=== PATIENT | male | born 1965 | race Caucasian/White ===

== ENCOUNTER → 2018-06-09 21:07 | Outpatient (CLI) | payer BC, OTHER, SELFPAY ==
[2018-06-09 11:32] VITALS: BMI 54.9
[2018-06-09 21:31] LABS: Absolute Lymphocyte Count 1.87 X10^3/ul (0.83-4.51); Absolute Neutrophil Count 5.8 X10^3/uL (2.0-7.7); Basophil# 0.07 X10^3/uL; Basophil% 0.7 % (0-1); Eosinophil# 0.84 X10^3/uL; Hematocrit 34.7 % (40-54); Hemoglobin 9.4 g/dl (13.0-16.5); Lymphocyte # 1.87 X10^3/ul (4.0); Mean Corp Hgb Conc 27.1 g/gl (32-36); Mean Corpuscular Hgb 17.3 pg (27.0-32.0); Mean Platelet Vol. 9.8 fl (6.2-12.0); Monocyte# 0.79 X10^3/uL; Monocyte% 8.5 % (0-10); Neutrophil # 5.75 X10^3/uL (2.7-7.7); Neutrophil % 61.6 % (47-70); Platelet Count 341 K/mm3 (150-450); RBC Distribution Width SD 43.8 fl (35.1-43.9); Red Blood Count 5.42 M/mm3 (4.6-6.2); White Blood Count 9.3 K/mm3 (4.4-11.0)
[2018-06-09 21:34] LABS: Differential Indicated SCAN CRITERIA MET; POSITIVE COUNT NO; POSITIVE DIFFERENTIAL NO; POSITIVE MORPHOLOGY YES
[2018-06-09 21:42] LABS: ALB/GLOB Ratio 0.9 RATIO (0.9-2.4); AST(SGOT) 21 U/L (15-37); Alanine Aminotransfer ALT/SGPT 31 U/L (16-61); Albumin, Serum 2.7 g/dL (3.2-5.0); Alkaline Phosphatase 107 U/L (45-117); Anion Gap 5 (5-15); BUN 25 mg/dL (7-18); BUN/Creat Ratio 35.2 RATIO (10-20); Calcium,Total 7.7 mg/dL (8.5-10.1); Chloride 107 mmol/L (98-107); Cholesterol 103 mg/dL (200); Creatinine, Serum 0.71 mg/dL (0.70-1.30); EST Glomerular Filtration Rate 124 mL/min (>60); Est Glom Filt Rate - Afr Amer 149 mL/min (>60); Globulin 2.9 g/dL (2.2-4.2); Glucose 164 mg/dL (74-106); High Density Lipoprotein 32 mg/dL; Potassium 4.3 mmol/L (3.5-5.1); Protein, Total 5.6 g/dL (6.4-8.2); Sodium Level 140 mmol/L (136-145); Thyroid Stim Hormone (TSH) 2.15 uIU/mL (0.358-3.74); Triglycerides 373 mg/dL; Very Low Density Lipoprotein 75 mg/dL (5-40)
[2018-06-09 22:23] LABS: Differential Comment SCANNED
[2018-06-09 22:24] LABS: Hypochromasia 1+; Polychromasia RARE
== END ==
PROVIDERS: Family Provider Nurse Practitioner; PCP Nurse Practitioner; Referring Provider Nurse Practitioner; Visit Provider Nurse Practitioner
DX: D64.9 Anemia, unspecified (principal); E78.5 Hyperlipidemia, unspecified; E03.9 Hypothyroidism, unspecified
CPT/HCPCS: 80053; 80061; 84443; 85025

== ENCOUNTER → 2018-06-12 | Outpatient (CLI) | payer BC, OTHER, SELFPAY ==
[2018-06-09 11:32] VITALS: BMI 54.9
[2018-06-12 23:42] LABS: Ferritin 3 ng/mL (26-388); Iron Binding Capacity,Total 440 ug/dL (250-450)
[2018-06-13 00:13] LABS: Vitamin B12 479 pg/mL (211-911)
== END | disposition home or self-care (01) ==
PROVIDERS: Family Provider Nurse Practitioner; PCP Nurse Practitioner; Referring Provider Nurse Practitioner; Visit Provider Nurse Practitioner
DX: D64.9 Anemia, unspecified (principal)
CPT/HCPCS: 82607; 82728; 83550

== ENCOUNTER → 2018-07-24 22:06 | Outpatient (CLI) | payer BC, OTHER, SELFPAY ==
[2018-06-09 11:32] VITALS: BMI 54.9
[2018-07-27 16:07] LABS: Endomysial Antibody IgA Negative (Negative)
[2018-07-28 12:39] LABS: Deamidated Gliadin IgA 24 units (0-19); Deamidated Gliadin IgG 19 units (0-19); Immunoglobulin A 104 mg/dL (90-386); t-Transglutaminase IgA 9 U/mL (0-3)
== END ==
PROVIDERS: Family Provider Nurse Practitioner; PCP Nurse Practitioner; Referring Provider Nurse Practitioner; Visit Provider Nurse Practitioner
DX: R19.4 Change in bowel habit (principal)
CPT/HCPCS: 82784; 83516; 86255

== ENCOUNTER → 2018-08-21 23:23 | Outpatient (CLI) | payer BC, OTHER, SELFPAY ==
[2018-06-09 11:32] VITALS: BMI 54.9
== END ==
LOC: OLS.AHF 23:24 → LABSPEC 08-22 08:06
PROVIDERS: Family Provider Nurse Practitioner; PCP Nurse Practitioner; Referring Provider Nurse Practitioner; Visit Provider Nurse Practitioner
DX: D50.9 Iron deficiency anemia, unspecified (principal)

== ENCOUNTER → 2018-10-23 21:56 | Outpatient (CLI) | payer BC, OTHER, SELFPAY ==
[2018-10-23 18:04] VITALS: BMI 52.3
[2018-10-23 22:11] LABS: Absolute Lymphocyte Count 1.95 X10^3/uL (0.83-4.51); Absolute Neutrophil Count 5.4 X10^3/uL (2.0-7.7); Basophil# 0.11 X10^3/uL; Basophil% 1.2 % (0-1); Eosinophil# 1.02 X10^3/uL; Eosinophils% 10.8 % (0-5); Hematocrit 43.8 % (40-54); Hemoglobin 13.6 g/dL (13.0-16.5); Lymphocyte # 1.95 X10^3/ul (4.0); Lymphocyte % 20.6 % (19-41); Mean Corp Hgb Conc 31.1 g/dL (32-36); Mean Corpuscular Hgb 23.9 pg (27.0-32.0); Mean Platelet Vol. 9.8 fl (6.2-12.0); Monocyte# 0.97 X10^3/uL; Monocyte% 10.3 % (0-10); NRBC Flagged by Analyzer 0 % (0-5); Neutrophil # 5.39 X10^3/uL (2.7-7.7); Neutrophil % 56.9 % (47-70); POSITIVE MORPHOLOGY YES; Platelet Count 249 K/mm3 (150-450); RBC Distribution Width CV 23.6 % (11.6-14.6); RBC Distribution Width SD 63.2 fl (35.1-43.9); Red Blood Count 5.69 M/mm3 (4.6-6.2); White Blood Count 9.5 K/mm3 (4.4-11.0)
[2018-10-23 22:13] LABS: Differential Indicated SCAN CRITERIA MET
[2018-10-23 22:28] LABS: AST(SGOT) 13 U/L (15-37); Alanine Aminotransfer ALT/SGPT 29 U/L (16-61); Albumin, Serum 3.1 g/dL (3.2-5.0); Alkaline Phosphatase 69 U/L (45-117); Anion Gap 6 (5-15); BUN 22 mg/dL (7-18); BUN/Creat Ratio 28.5 RATIO (10-20); Calcium,Total 8.8 mg/dL (8.5-10.1); Chloride 107 mmol/L (98-107); Creatinine, Serum 0.77 mg/dL (0.70-1.30); EST Glomerular Filtration Rate 112 mL/min (>60); Est Glom Filt Rate - Afr Amer 136 mL/min (>60); Globulin 3.2 g/dL (2.2-4.2); Glucose 148 mg/dL (74-106); Potassium 3.5 mmol/L (3.5-5.1); Prealbumin 27.4 mg/dL (20.0-40.0); Protein, Total 6.3 g/dL (6.4-8.2); Sodium Level 143 mmol/L (136-145)
[2018-10-23 22:41] LABS: Platelet Estimate ADEQUATE (ADEQ)
[2018-10-23 22:42] LABS: Anisocytosis 1+; Microcytosis 1+; Red Cell Morphology N CHROM NORMAL (NORM C&C)
== END ==
PROVIDERS: Family Provider Nurse Practitioner; PCP Nurse Practitioner; Referring Provider Nurse Practitioner; Visit Provider Nurse Practitioner
DX: D64.9 Anemia, unspecified (principal); E46 Unspecified protein-calorie malnutrition
CPT/HCPCS: 80053; 84134; 85025

== ENCOUNTER → 2018-11-22 21:33 | Outpatient (CLI) | payer BC, OTHER, SELFPAY ==
[2018-11-22 21:10] VITALS: BMI 52.3
[2018-11-22 21:39] LABS: Absolute Lymphocyte Count 2.22 X10^3/uL (0.83-4.51); Absolute Neutrophil Count 5.1 X10^3/uL (2.0-7.7); Basophil# 0.11 X10^3/uL; Basophil% 1.2 % (0-1); Eosinophil# 1.07 X10^3/uL; Eosinophils% 11.2 % (0-5); Hematocrit 45.1 % (40-54); Hemoglobin 14.2 g/dL (13.0-16.5); Lymphocyte # 2.22 X10^3/ul (4.0); Lymphocyte % 23.3 % (19-41); Mean Corp Hgb Conc 31.5 g/dL (32-36); Mean Corpuscular Volume 79.3 fL (80-94); Mean Platelet Vol. 9.7 fl (6.2-12.0); Monocyte# 0.99 X10^3/uL; Monocyte% 10.4 % (0-10); NRBC Flagged by Analyzer 0 % (0-5); Neutrophil # 5.13 X10^3/uL (2.7-7.7); Neutrophil % 53.7 % (47-70); POSITIVE MORPHOLOGY YES; Platelet Count 286 K/mm3 (150-450); Red Blood Count 5.69 M/mm3 (4.6-6.2); White Blood Count 9.5 K/mm3 (4.4-11.0)
[2018-11-22 21:46] LABS: Differential Indicated SCAN CRITERIA MET
[2018-11-22 21:53] LABS: ALB/GLOB Ratio 0.9 RATIO (0.9-2.4); AST(SGOT) 17 U/L (15-37); Alanine Aminotransfer ALT/SGPT 34 U/L (16-61); Alkaline Phosphatase 80 U/L (45-117); Anion Gap 7 (5-15); BUN 24 mg/dL (7-18); BUN/Creat Ratio 28.2 RATIO (10-20); Calcium,Total 8.7 mg/dL (8.5-10.1); Chloride 104 mmol/L (98-107); Creatinine, Serum 0.85 mg/dL (0.70-1.30); EST Glomerular Filtration Rate 100 mL/min (>60); Est Glom Filt Rate - Afr Amer 121 mL/min (>60); Ferritin 18 ng/mL (26-388); Globulin 3.3 g/dL (2.2-4.2); Glucose 147 mg/dL (74-106); Potassium 4.2 mmol/L (3.5-5.1); Protein, Total 6.3 g/dL (6.4-8.2); Sodium Level 139 mmol/L (136-145)
[2018-11-22 22:02] LABS: Anisocytosis RARE; Microcytosis RARE; Platelet Estimate ADEQUATE (ADEQ); Red Cell Morphology N CHROM NORMAL (NORM C&C)
== END ==
PROVIDERS: Family Provider Nurse Practitioner; PCP Nurse Practitioner; Referring Provider Nurse Practitioner; Visit Provider Nurse Practitioner
DX: D64.9 Anemia, unspecified (principal); E46 Unspecified protein-calorie malnutrition
CPT/HCPCS: 80053; 82728; 85025

== ENCOUNTER → 2019-03-04 21:00 | Outpatient (CLI) | payer BC, OTHER, SELFPAY ==
[2019-03-04 18:31] VITALS: BMI 50.8
[2019-03-04 21:13] LABS: Absolute Lymphocyte Count 1.88 X10^3/uL (0.83-4.51); Absolute Neutrophil Count 4.7 X10^3/uL (2.0-7.7); Basophil# 0.08 X10^3/uL; Eosinophil# 0.79 X10^3/uL; Eosinophils% 9.4 % (0-5); Hematocrit 44.8 % (40-54); Hemoglobin 14.3 g/dL (13.0-16.5); Lymphocyte # 1.88 X10^3/ul (4.0); Lymphocyte % 22.4 % (19-41); Mean Corp Hgb Conc 31.9 g/dL (32-36); Mean Corpuscular Hgb 25.5 pg (27.0-32.0); Mean Platelet Vol. 9.4 fl (6.2-12.0); Monocyte% 10.7 % (0-10); NRBC Flagged by Analyzer 0 % (0-5); Neutrophil # 4.71 X10^3/uL (2.7-7.7); Neutrophil % 56.3 % (47-70); Platelet Count 278 K/mm3 (150-450); RBC Distribution Width CV 14.6 % (11.6-14.6); White Blood Count 8.4 K/mm3 (4.4-11.0)
[2019-03-04 21:29] LABS: ALB/GLOB Ratio 0.9 RATIO (0.9-2.4); AST(SGOT) 18 U/L (15-37); Alanine Aminotransfer ALT/SGPT 40 U/L (16-61); Albumin, Serum 3.2 g/dL (3.2-5.0); Alkaline Phosphatase 76 U/L (45-117); Anion Gap 6 (5-15); BUN 17 mg/dL (7-18); BUN/Creat Ratio 21.9 RATIO (10-20); Calcium,Total 8.8 mg/dL (8.5-10.1); Chloride 106 mmol/L (98-107); Creatinine, Serum 0.78 mg/dL (0.70-1.30); EST Glomerular Filtration Rate 111 mL/min (>60); Est Glom Filt Rate - Afr Amer 134 mL/min (>60); Ferritin 19 ng/mL (26-388); Globulin 3.4 g/dL (2.2-4.2); Glucose 127 mg/dL (74-106); Iron Binding Capacity,Total 438 ug/dL (250-450); Potassium 3.6 mmol/L (3.5-5.1); Protein, Total 6.6 g/dL (6.4-8.2); Sodium Level 139 mmol/L (136-145)
== END ==
PROVIDERS: Family Provider Nurse Practitioner; PCP Nurse Practitioner; Referring Provider Nurse Practitioner; Visit Provider Nurse Practitioner
DX: R73.9 Hyperglycemia, unspecified (principal); D64.9 Anemia, unspecified
CPT/HCPCS: 80053; 82728; 83550; 85025

== ENCOUNTER → 2019-08-02 09:25 | Outpatient (CLI) | payer BC, SELFPAY ==
[2019-06-04 17:58] VITALS: BMI 50.8
== END ==
PROVIDERS: PCP Nurse Practitioner; Referring Provider Nurse Practitioner; Visit Provider Nurse Practitioner
DX: Z20.828 Contact with and (suspected) exposure to other viral communicable diseases (principal)
CPT/HCPCS: 87635; G2023; U0003

== ENCOUNTER → 2019-08-09 06:50 | Outpatient (CLI) | payer BC, SELFPAY ==
[2019-06-04 17:58] VITALS: BMI 50.8
--- NOTE | 2019-08-09 07:10 | RAD_ITS ---
STUDY: X-RAY CHEST REASON FOR EXAM: Male, 53 years old. CHRONIC COUGH TECHNIQUE: PA and lateral views of the chest. COMPARISON: None. FINDINGS: The lungs are clear and expanded. Scattered calcified granulomas. There is no demonstrated pleural abnormality. Normal size heart. Normal mediastinum and ny. Normal visualized pulmonary arteries. Normal visualized aortic arch and descending thoracic aorta. There are degenerative changes of the visualized thoracic spine. Normal visualized ribs, clavicles, and shoulders. There is no demonstrated abnormality of the visualized soft tissue structures of the upper abdomen. RAD/Chest PA and Lateral IMPRESSION: No acute abnormality is seen. Electronically Signed: Curtis Garcia, at 10:27 EDT , Service support ,
== END ==
PROVIDERS: PCP Nurse Practitioner; Referring Provider Nurse Practitioner; Visit Provider Nurse Practitioner
DX: R05 Cough (principal)
CPT/HCPCS: 71046

== ENCOUNTER → 2019-11-22 | Outpatient (CLI) | payer BC, SELFPAY ==
[2019-11-22 15:04] VITALS: BMI 55.1
[2019-11-22 20:59] LABS: ALB/GLOB Ratio 0.9 RATIO (0.9-2.4); AST(SGOT) 19 U/L (15-37); Alanine Aminotransfer ALT/SGPT 36 U/L (16-61); Albumin, Serum 2.9 g/dL (3.2-5.0); Alkaline Phosphatase 98 U/L (45-117); Anion Gap 7 (5-15); BUN 19 mg/dL (7-18); BUN/Creat Ratio 23.5 RATIO (10-20); Calcium,Total 8.2 mg/dL (8.5-10.1); Chloride 107 mmol/L (98-107); Creatinine, Serum 0.81 mg/dL (0.70-1.30); EST Glomerular Filtration Rate 106 mL/min (>60); Est Glom Filt Rate - Afr Amer 128 mL/min (>60); Globulin 3.2 g/dL (2.2-4.2); Glucose 153 mg/dL (74-106); Protein, Total 6.1 g/dL (6.4-8.2); Sodium Level 141 mmol/L (136-145)
== END | disposition home or self-care (01) ==
PROVIDERS: PCP Nurse Practitioner; Referring Provider Nurse Practitioner; Visit Provider Nurse Practitioner
DX: I10 Essential (primary) hypertension (principal)
CPT/HCPCS: 80053

== ENCOUNTER → 2020-05-04 | Outpatient (CLI) | payer BC, SELFPAY ==
[2020-05-04 17:59] VITALS: BMI 56.0
[2020-05-04 22:52] LABS: Absolute Lymphocyte Count 2.26 X10^3/uL (0.83-4.51); Absolute Neutrophil Count 5.2 X10^3/uL (2.0-7.7); Basophil# 0.08 X10^3/uL; Basophil% 0.8 % (0-1); Eosinophil# 1.31 X10^3/uL; Eosinophils% 13.3 % (0-5); Hematocrit 41.2 % (40-54); Hemoglobin 12.3 g/dL (13.0-16.5); Lymphocyte # 2.26 X10^3/ul (4.0); Lymphocyte % 22.9 % (19-41); Mean Corp Hgb Conc 29.9 g/dL (32-36); Mean Corpuscular Hgb 21.7 pg (27.0-32.0); Mean Corpuscular Volume 72.8 fL (80-94); Mean Platelet Vol. 9.9 fl (6.2-12.0); Monocyte# 0.93 X10^3/uL; Monocyte% 9.4 % (0-10); NRBC Flagged by Analyzer 0 % (0-5); Neutrophil # 5.23 X10^3/uL (2.7-7.7); Platelet Count 266 K/mm3 (150-450); RBC Distribution Width CV 16.9 % (11.6-14.6); RBC Distribution Width SD 43.8 fl (35.1-43.9); Red Blood Count 5.66 M/mm3 (4.6-6.2); White Blood Count 9.9 K/mm3 (4.4-11.0)
[2020-05-04 23:12] LABS: Hemoglobin A1c 7.3 % (3.8-5.6)
[2020-05-04 23:14] LABS: ALB/GLOB Ratio 0.8 RATIO (0.9-2.4); AST(SGOT) 27 U/L (15-37); Alanine Aminotransfer ALT/SGPT 43 U/L (16-61); Albumin, Serum 2.7 g/dL (3.2-5.0); Alkaline Phosphatase 91 U/L (45-117); Anion Gap 8 (5-15); BUN 27 mg/dL (7-18); BUN/Creat Ratio 41.2 RATIO (10-20); Calcium,Total 8.9 mg/dL (8.5-10.1); Chloride 104 mmol/L (98-107); Cholesterol 162 mg/dL (200); Creatinine, Serum 0.66 mg/dL (0.70-1.30); EST Glomerular Filtration Rate 134 mL/min (>60); Est Glom Filt Rate - Afr Amer 163 mL/min (>60); Globulin 3.4 g/dL (2.2-4.2); Glucose 132 mg/dL (74-106); High Density Lipoprotein 40 mg/dL; Magnesium 1.8 mg/dL (1.6-2.6); Potassium 3.9 mmol/L (3.5-5.1); Prealbumin 24.9 mg/dL (20.0-40.0); Protein, Total 6.1 g/dL (6.4-8.2); Sodium Level 140 mmol/L (136-145); Triglycerides 410 mg/dL
== END | disposition home or self-care (01) ==
PROVIDERS: PCP Nurse Practitioner; Referring Provider Nurse Practitioner; Visit Provider Nurse Practitioner
DX: I10 Essential (primary) hypertension (principal); E11.65 Type 2 diabetes mellitus with hyperglycemia; E78.1 Pure hyperglyceridemia; E46 Unspecified protein-calorie malnutrition; D64.9 Anemia, unspecified
CPT/HCPCS: 80053; 80061; 83036; 83735; 84134; 85025

== ENCOUNTER → 2020-10-08 | Outpatient (CLI) | payer BC, SELFPAY ==
[2020-10-08 18:41] VITALS: BMI 53.8
[2020-10-08 22:03] LABS: Absolute Lymphocyte Count 2.35 X10^3/uL (0.83-4.51); Absolute Neutrophil Count 5.3 X10^3/uL (2.0-7.7); Basophil# 0.11 X10^3/uL; Basophil% 1.1 % (0-1); Eosinophil# 0.93 X10^3/uL; Eosinophils% 9.7 % (0-5); Hematocrit 35.1 % (40-54); Hemoglobin 10.2 g/dL (13.0-16.5); Lymphocyte # 2.35 X10^3/ul (0.83-4.51); Lymphocyte % 24.4 % (19-41); Mean Corp Hgb Conc 29.1 g/dL (32-36); Mean Corpuscular Hgb 19.6 pg (27.0-32.0); Mean Corpuscular Volume 67.4 fL (80-94); Mean Platelet Vol. 9.5 fl (6.2-12.0); Monocyte# 0.88 X10^3/uL; Monocyte% 9.1 % (0-10); NRBC Flagged by Analyzer 0 % (0-5); Neutrophil # 5.32 X10^3/uL (2.7-7.7); Neutrophil % 55.3 % (47-70); Platelet Count 292 K/mm3 (150-450); RBC Distribution Width CV 17.3 % (11.6-14.6); RBC Distribution Width SD 40.5 fl (35.1-43.9); Red Blood Count 5.21 M/mm3 (4.6-6.2); White Blood Count 9.6 K/mm3 (4.4-11.0)
[2020-10-08 22:30] LABS: AST(SGOT) 20 U/L (15-37); Alanine Aminotransfer ALT/SGPT 37 U/L (16-61); Albumin, Serum 3.2 g/dL (3.2-5.0); Alkaline Phosphatase 69 U/L (45-117); Anion Gap 9 (5-15); BUN 20 mg/dL (7-18); BUN/Creat Ratio 33.7 RATIO (10-20); Calcium,Total 8.5 mg/dL (8.5-10.1); Chloride 103 mmol/L (98-107); Cholesterol 158 mg/dL (200); Creatinine, Serum 0.59 mg/dL (0.70-1.30); EST Glomerular Filtration Rate 151 mL/min (>60); Est Glom Filt Rate - Afr Amer 182 mL/min (>60); Globulin 3.3 g/dL (2.2-4.2); Glucose 147 mg/dL (74-106); High Density Lipoprotein 48 mg/dL; Potassium 3.4 mmol/L (3.5-5.1); Protein, Total 6.5 g/dL (6.4-8.2); Sodium Level 139 mmol/L (136-145); Thyroid Stim Hormone (TSH) 1.93 uIU/mL (0.358-3.74); Triglycerides 153 mg/dL; Very Low Density Lipoprotein 31 mg/dL (5-40)
[2020-10-08 22:48] LABS: Hemoglobin A1c 8.1 % (3.8-5.6)
== END | disposition home or self-care (01) ==
PROVIDERS: PCP Nurse Practitioner; Visit Provider Nurse Practitioner
DX: E03.9 Hypothyroidism, unspecified (principal); E78.1 Pure hyperglyceridemia; E11.65 Type 2 diabetes mellitus with hyperglycemia; I10 Essential (primary) hypertension; D50.8 Other iron deficiency anemias
CPT/HCPCS: 80053; 80061; 83036; 84443; 85025

== ENCOUNTER 2021-04-01 22:01 | Outpatient (CLI) | payer BC, SELFPAY ==
[2021-04-01 22:19] LABS: Absolute Lymphocyte Count 2.17 X10^3/uL (0.83-4.51); Absolute Neutrophil Count 5.2 X10^3/uL (2.0-7.7); Basophil% 1.2 % (0-1); Eosinophil# 0.38 X10^3/uL; Eosinophils% 4.4 % (0-5); Hematocrit 35.3 % (40-54); Hemoglobin 9.5 g/dL (13.0-16.5); Lymphocyte # 2.17 X10^3/ul (0.83-4.51); Mean Corp Hgb Conc 26.9 g/dL (32-36); Mean Corpuscular Hgb 16.4 pg (27.0-32.0); Mean Corpuscular Volume 60.8 fL (80-94); Mean Platelet Vol. 9.4 fl (6.2-12.0); Monocyte# 0.85 X10^3/uL; Monocyte% 9.8 % (0-10); NRBC Flagged by Analyzer 0 % (0-5); Neutrophil # 5.15 X10^3/uL (2.7-7.7); Neutrophil % 59.3 % (47-70); POSITIVE MORPHOLOGY YES; Platelet Count 255 K/mm3 (150-450); Red Blood Count 5.81 M/mm3 (4.6-6.2); White Blood Count 8.7 K/mm3 (4.4-11.0)
[2021-04-01 22:24] LABS: Differential Indicated SCAN CRITERIA MET
[2021-04-01 22:36] LABS: ALB/GLOB Ratio 0.9 RATIO (0.9-2.4); AST(SGOT) 28 U/L (15-37); Alanine Aminotransfer ALT/SGPT 49 U/L (16-61); Albumin, Serum 2.9 g/dL (3.2-5.0); Alkaline Phosphatase 88 U/L (45-117); Anion Gap 5 (5-15); BUN 21 mg/dL (7-18); BUN/Creat Ratio 40.6 RATIO (10-20); Calcium,Total 7.9 mg/dL (8.5-10.1); Chloride 104 mmol/L (98-107); Cholesterol 117 mg/dL (200); Creatinine, Serum 0.52 mg/dL (0.70-1.30); EST Glomerular Filtration Rate 176 mL/min (>60); Est Glom Filt Rate - Afr Amer 213 mL/min (>60); Globulin 3.1 g/dL (2.2-4.2); Glucose 139 mg/dL (74-106); High Density Lipoprotein 41 mg/dL; Potassium 3.6 mmol/L (3.5-5.1); Sodium Level 136 mmol/L (136-145); Thyroid Stim Hormone (TSH) 2.17 uIU/mL (0.358-3.74); Triglycerides 203 mg/dL; Very Low Density Lipoprotein 41 mg/dL (5-40)
[2021-04-01 22:40] LABS: Anisocytosis 2+; Hypochromasia 1+; Microcytosis 2+; Platelet Estimate ADEQUATE (ADEQ); Red Cell Morphology N CHROM NORMAL (NORM C&C)
[2021-04-01 22:44] LABS: Hemoglobin A1c 8.4 % (3.8-5.6)
[2021-04-02 13:14] LABS: Vitamin B12 492 pg/mL (211-911)
[2021-04-05 21:40] LABS: Vitamin D 1,25-Dihydroxy 64.9 pg/mL (19.9-79.3)
== END 2021-04-01 23:59 | disposition short-term general hospital (02) ==
PROVIDERS: PCP Nurse Practitioner; Visit Provider Nurse Practitioner
DX: D50.8 Other iron deficiency anemias (principal); E11.65 Type 2 diabetes mellitus with hyperglycemia; I10 Essential (primary) hypertension; E78.1 Pure hyperglyceridemia; E03.9 Hypothyroidism, unspecified
CPT/HCPCS: 80053; 80061; 82607; 82652; 83036; 84443; 85025

== ENCOUNTER 2021-11-02 21:51 | Outpatient (CLI) | payer BC, SELFPAY ==
[2021-11-02 22:34] LABS: Absolute Lymphocyte Count 2.97 X10^3/uL (0.83-4.51); Absolute Neutrophil Count 5.6 X10^3/uL (2.0-7.7); Eosinophil# 0.62 X10^3/uL; Eosinophils% 6.1 % (0-5); Hematocrit 34.7 % (40-54); Hemoglobin 9.2 g/dL (13.0-16.5); Lymphocyte # 2.97 X10^3/ul (0.83-4.51); Lymphocyte % 29.1 % (19-41); Mean Corp Hgb Conc 26.5 g/dL (32-36); Mean Corpuscular Hgb 16.7 pg (27.0-32.0); Mean Corpuscular Volume 63.1 fL (80-94); Mean Platelet Vol. 9.5 fl (6.2-12.0); Monocyte# 0.88 X10^3/uL; Monocyte% 8.6 % (0-10); NRBC Flagged by Analyzer 0 % (0-5); Neutrophil # 5.59 X10^3/uL (2.7-7.7); Neutrophil % 54.8 % (47-70); POSITIVE MORPHOLOGY YES; Platelet Count 341 K/mm3 (150-450); RBC Distribution Width CV 20.3 % (11.6-14.6); White Blood Count 10.2 K/mm3 (4.4-11.0)
[2021-11-02 22:43] LABS: Differential Indicated SCAN CRITERIA MET
[2021-11-02 23:06] LABS: Anisocytosis 2+; Hypochromasia 2+; Microcytosis 2+; Pathologist Review May foll; Platelet Estimate ADEQUATE (ADEQ); Red Cell Morphology N CHROM NORMAL (NORM C&C)
[2021-11-02 23:12] LABS: ALB/GLOB Ratio 1.1 RATIO (0.9-2.4); AST(SGOT) 16 U/L (15-37); Alanine Aminotransfer ALT/SGPT 30 U/L (16-61); Albumin, Serum 3.2 g/dL (3.2-5.0); Alkaline Phosphatase 66 U/L (45-117); Anion Gap 10 (5-15); BUN 15 mg/dL (7-18); Calcium,Total 8.5 mg/dL (8.5-10.1); Chloride 103 mmol/L (98-107); Cholesterol 137 mg/dL (200); Creatinine, Serum 0.52 mg/dL (0.70-1.30); EST Glomerular Filtration Rate 175 mL/min (>60); Est Glom Filt Rate - Afr Amer 212 mL/min (>60); Glucose 98 mg/dL (74-106); High Density Lipoprotein 50 mg/dL; Potassium 3.2 mmol/L (3.5-5.1); Protein, Total 6.2 g/dL (6.4-8.2); Sodium Level 140 mmol/L (136-145); Thyroid Stim Hormone (TSH) 2.13 uIU/mL (0.358-3.74); Triglycerides 111 mg/dL; Very Low Density Lipoprotein 22 mg/dL (5-40)
== END 2021-11-02 23:59 | disposition home or self-care (01) ==
PROVIDERS: PCP Nurse Practitioner; Visit Provider Nurse Practitioner
DX: Z00.00 Encounter for general adult medical examination without abnormal findings (principal)
CPT/HCPCS: 80053; 80061; 83036; 84443; 85025

== ENCOUNTER → 2022-05-11 | Outpatient (CLI) | payer BC, SELFPAY ==
[2022-05-11 21:26] LABS: Absolute Lymphocyte Count 1.73 X10^3/uL (0.83-4.51); Basophil# 0.07 X10^3/uL; Eosinophils% 10.9 % (0-5); Hematocrit 32.1 % (40-54); Hemoglobin 8.6 g/dL (13.0-16.5); Lymphocyte # 1.73 X10^3/ul (0.83-4.51); Lymphocyte % 23.6 % (19-41); Mean Corp Hgb Conc 26.8 g/dL (32-36); Mean Corpuscular Hgb 16.3 pg (27.0-32.0); Mean Corpuscular Volume 60.9 fL (80-94); Mean Platelet Vol. 9.1 fl (6.2-12.0); Monocyte% 9.5 % (0-10); NRBC Flagged by Analyzer 0 % (0-5); Neutrophil # 4.02 X10^3/uL (2.7-7.7); Neutrophil % 54.9 % (47-70); POSITIVE MORPHOLOGY YES; Platelet Count 244 K/mm3 (150-450); RBC Distribution Width CV 20.3 % (11.6-14.6); RBC Distribution Width SD 42.2 fl (35.1-43.9); Red Blood Count 5.27 M/mm3 (4.6-6.2); White Blood Count 7.3 K/mm3 (4.4-11.0)
[2022-05-11 21:29] LABS: Differential Indicated SCAN CRITERIA MET
[2022-05-11 21:45] LABS: Anisocytosis 2+; Differential Comment SCANNED; Microcytosis 2+
[2022-05-11 21:47] LABS: Hypochromasia 2+
[2022-05-11 21:48] LABS: AST(SGOT) 23 U/L (15-37); Alanine Aminotransfer ALT/SGPT 35 U/L (16-61); Albumin, Serum 2.9 g/dL (3.2-5.0); Alkaline Phosphatase 61 U/L (45-117); Anion Gap 9 (5-15); BUN 16 mg/dL (7-18); BUN/Creat Ratio 33.5 RATIO (10-20); CRP, High Sensitivity Cardiac 0.73 mg/L; Calcium,Total 8.2 mg/dL (8.5-10.1); Chloride 106 mmol/L (98-107); Cholesterol 138 mg/dL (200); Creatinine, Serum 0.48 mg/dL (0.70-1.30); EST Glomerular Filtration Rate 192 mL/min (>60); Est Glom Filt Rate - Afr Amer 232 mL/min (>60); Globulin 2.8 g/dL (2.2-4.2); Glucose 93 mg/dL (74-106); High Density Lipoprotein 51 mg/dL; PSA,Total - Annual Screen 0.35 ng/mL (0.00-4.00); Polychromasia 1+; Potassium 3.3 mmol/L (3.5-5.1); Protein, Total 5.7 g/dL (6.4-8.2); Sodium Level 142 mmol/L (136-145); Thyroid Stim Hormone (TSH) 2.93 uIU/mL (0.358-3.74); Triglycerides 104 mg/dL; Very Low Density Lipoprotein 21 mg/dL (5-40)
[2022-05-11 22:01] LABS: Hemoglobin A1c 5.7 % (3.8-5.6)
== END | disposition home or self-care (01) ==
PROVIDERS: PCP Nurse Practitioner; Visit Provider Nurse Practitioner
DX: Z00.00 Encounter for general adult medical examination without abnormal findings (principal)
CPT/HCPCS: 80053; 80061; 83036; 84153; 84443; 85025; 86141; G0103

== ENCOUNTER → 2022-05-18 | Outpatient (CLI) | payer BC, SELFPAY ==
--- NOTE | 2022-05-18 19:20 | RAD_ITS ---
STUDY: X-RAY - THORACIC SPINE REASON FOR EXAM: Male, 56 years old. Back pain. TECHNIQUE: 3 view(s) of the thoracic spine were obtained. COMPARISON: None. FINDINGS: Normal kyphosis of the thoracic spine. Mild dextroscoliosis. Diffuse intervertebral disc space narrowing with osteophyte formation. No vertebral compression deformities. Normal visualized soft tissues. RAD/Thoracic Spine 3 Views IMPRESSION: Mild diffuse thoracic spondylosis with no acute abnormality or evidence of erosive changes/fusion. Electronically Signed: Martin Whitmore, at 14:47 EDT ,
== END | disposition home or self-care (01) ==
PROVIDERS: PCP Nurse Practitioner; Visit Provider Nurse Practitioner
DX: M54.6 Pain in thoracic spine (principal); M54.50 Low back pain, unspecified
CPT/HCPCS: 72072

== ENCOUNTER → 2022-06-27 | Outpatient (CLI) | payer BC, SELFPAY ==
[2022-06-27 21:55] LABS: Vitamin B12 766 pg/mL (211-911)
[2022-06-27 22:33] LABS: Ferritin 4 ng/mL (26-388); Iron 10 ug/dL (65-175); Iron Binding Capacity,Total 449 ug/dL (250-450); PERCENT IRON SATURATION 2.2 % (15.0-55.0)
== END | disposition home or self-care (01) ==
PROVIDERS: PCP Nurse Practitioner; Visit Provider Nurse Practitioner
DX: D50.9 Iron deficiency anemia, unspecified (principal)
CPT/HCPCS: 82607; 82728; 82746; 83540; 83550

== ENCOUNTER → 2022-09-23 | Outpatient (CLI) | payer BC, SELFPAY ==
--- NOTE | 2022-09-23 10:40 | VDLE_ITS ---
Reason For Study: LLE PAIN Procedure LEFT This is a venous duplex using B-mode, color GSV is normal. flow and spectral Doppler. CFV is compressible, spontaneous, phasic, Exam performed in department. competent, and demonstrates normal The study was technically difficult. augmentation. Due to edema. FV is compressible, spontaneous, phasic, A preliminary report was called and/or faxed competent and demonstrates normal to Dr. Hassan @ [phone] @ 11 am. augmentation. POP V is compressible, spontaneous, phasic, competent and demonstrates normal augmentation. T/P Trunk is compressible. PTV is compressible. LT PerV is compressible. VL/Venous Duplex US, Unilateral Interpretation Summary Deep veins of the left lower extremity are patent and compressible segmentally. There is no evidence of left lower extremity deep vein thrombosis. The left great saphenous vein dimitri ears patent and compressible segmentally. Ordering Physician: Aleks Hassan Referring Physician: Yari Barbosa Performed By: Earnestine Cruz RDCS, RVT
== END | disposition home or self-care (01) ==
LOC: CVS 10:39
PROVIDERS: PCP Nurse Practitioner; Referring Provider Orthopaedic Surgery; Visit Provider Orthopaedic Surgery
DX: M79.662 Pain in left lower leg (principal)
CPT/HCPCS: 93971

== ENCOUNTER → 2024-01-01 | Outpatient (CLI) | payer BC, SELFPAY ==
[2024-01-01 22:26] LABS: Absolute Lymphocyte Count 2.01 X10^3/uL (0.83-4.51); Absolute Neutrophil Count 3.6 X10^3/uL (2.0-7.7); Basophil# 0.06 X10^3/uL; Basophil% 0.9 % (0-1); Eosinophil# 0.47 X10^3/uL; Eosinophils% 6.8 % (0-5); Hematocrit 42.3 % (40-54); Hemoglobin 13.5 g/dL (13.0-16.5); Lymphocyte # 2.01 X10^3/ul (0.83-4.51); Lymphocyte % 29.1 % (19-41); Mean Corp Hgb Conc 31.9 g/dL (32-36); Mean Corpuscular Hgb 24.7 pg (27.0-32.0); Mean Corpuscular Volume 77.3 fL (80-94); Mean Platelet Vol. 9.9 fl (6.2-12.0); Monocyte# 0.74 X10^3/uL; Monocyte% 10.7 % (0-10); NRBC Flagged by Analyzer 0 % (0-5); Neutrophil % 52.2 % (47-70); Platelet Count 194 K/mm3 (150-450); RBC Distribution Width CV 15.9 % (11.6-14.6); RBC Distribution Width SD 44.4 fl (35.1-43.9); Red Blood Count 5.47 M/mm3 (4.6-6.2); White Blood Count 6.9 K/mm3 (4.4-11.0)
--- OUTSIDE RECORDS SUMMARY | 2024-01-01 22:39 | XMS RPT_ITS | CCD ---
Author Organization [facility] Inform ion [facility] Care Team Providers Care Spirits Model Name Role Phone OSVALDO HARLEY Primary Care Unavailable JOSIE GRAY Attending Unavailable CHERRI RUST-PROGRAM MANAGEMENT SPECIALISTOSVALDO Primary Care Physici an CHERRI RUST-PROGRAM MANAGEMENT SPECIALISTOSVALDO Primary Care Unav ailable FABY LAMB Attending Unavailable Problems Problem Classification Problem Date Documented Da te Episodic/Chronic E Codes: Fall (1 source) Unspecified fall, initial encounter; Translations: [Fall, initial encounter] Onset: 07-17-2022 Episodic Open wounds of head; neck; and trunk (1 source) Laceration without foreign body of right ear, initial encounter; Translations: [Complex laceration of ear, right, initial encounter] Onset: 07-17-2022 Episodic Sprains and strains (1 source) Unspecified sprain of right shoulder joint, initial encounter; Translations: [Sprain of right shoulder, unspecified shoulder sprain type, initial encounter] Onset: 07-17-2022 Episodic Superficial injury; contusion (1 source) Abrasion of right upper arm, initial encounter; Translations: [Abrasion of right upper extremity, initial encounter] Onset: 07-17-2022 Episodic Results Test Name Value Interpretation Reference Range Facility .Auto Diffon 09-03-2022 Basophil, Absolute 0.1 10 3/mcL Normal 0.0-0.2 [facility] ([place]) Comment on above: Performed By: #### A JENA, GFR, CBC, BMP, MORPH, A1C, ADIFF #### [facility] [address] [place], [place] [address] Basophils/100 WBC (Bld) 1.5 % Normal 0.0-2.5 [facility] [place] Comment on above: Performed By: #### A JENA, GFR, CBC, BMP, MORPH, A1C, ADIFF #### [address] [address] Eosinophil, Absolute 0.6 10 3/mcL High 0.0-0.4 [facility] ([place]) Comment on above: Performed By: #### A JENA, GFR, CBC, BMP, MORPH, A1C, ADIFF #### [address] [address] Eosinophils/100 WBC (Bld) 10.1 % High 0.0-7.0 [facility] [place] Comment on above: Performed By: #### A JENA, GFR, CBC, BMP, MORPH, A1C, ADIFF #### [address] [address] Lymphocyte, Absolute 0.9 10 3/mcL Normal 0.8-3.9 [facility] ([place] Comment on above: Performed By: #### A JENA, GFR, CBC, BMP, MORPH, A1C, ADIFF #### [address] [address] Lymphocytes/100 WBC (Bld) 15.9 % Normal 10.0-50.0 [facility] [place] Comment on above: Performed By: #### A JENA, GFR, CBC, BMP, MORPH, A1C, ADIFF #### [address] [address] Monocyte, Absolute 0.5 10 3/mcL Normal 0.2-1.0 [facility] ([place] Comment on above: Performed By: #### A JENA, GFR, CBC, BMP, MORPH, A1C, ADIFF #### [address] [address] Monocytes/100 WBC (Bld) 9.5 % Normal 1.7-13.0 [facility] [place] Comment on above: Performed By: #### A JENA, GFR, CBC, BMP, MORPH, A1C, ADIFF #### [address] [address] Neutrophils/100 WBC (Bld) 63.0 % Normal 37.0-80.0 [facility] [place] Comment on above: Performed By: #### A JENA, GFR, CBC, BMP, MORPH, A1C, ADIFF #### [address] [address] .GFRon 09-03-2022 GFR Non- 129 ml/min/1.73sqm Normal [facility] [place] Comment on above: Result Comment: GFR Population mean for , Non- Americans Ages 20-29 = 116 mL/min/1.73 sq.m. Ages 30-39 = 107 mL/min/1.73 sq.m. Ages 40-49 = 99 mL/min/1.73 sq.m. Ages 50-59 = 93 mL/min/1.73 sq.m. Ages 60-69 = 85 mL/min/1.73 sq.m. Ages 70+ = 75 mL/min/1.73 sq.m. Chronic Kidney Disease: Less than 60 mL/min/1.73 square meters End Stage Renal Disease: Less than 15 mL/min/1.73 square meters Performed By: #### A JENA, GFR, CBC, BMP, MORPH, A1C, ADIFF #### [address] [address] GFR 157 ml/min/1.73sqm Normal [facility] [place] Comment on above: Result Comment: GFR Population mean for , Non- Americans Ages 20-29 = 116 mL/min/1.73 sq.m. Ages 30-39 = 107 mL/min/1.73 sq.m. Ages 40-49 = 99 mL/min/1.73 sq.m. Ages 50-59 = 93 mL/min/1.73 sq.m. Ages 60-69 = 85 mL/min/1.73 sq.m. Ages 70+ = 75 mL/min/1.73 sq.m. Chronic Kidney Disease: Less than 60 mL/min/1.73 square meters End Stage Renal Disease: Less than 15 mL/min/1.73 square meters Performed By: #### A JENA, GFR, CBC, BMP, MORPH, A1C, ADIFF #### [place] [address] [address] .Morphon 09-03-2022 Anisocytosis Ql (Bld) 1+ Normal [facility] ([place] Comment on above: Performed By: #### A JENA, GFR, CBC, BMP, MORPH, A1C, ADIFF #### [address] [address] Hypochrom 1+ Normal [facility] [place] Comment on above: Performed By: #### A JENA, GFR, CBC, BMP, MORPH, A1C, ADIFF #### [address] [address] Microcytosis 2+ Normal [facility] [place] Comment on above: Performed By: #### A JENA, GFR, CBC, BMP, MORPH, A1C, ADIFF #### [address] [address] Ovalocytes 1+ Normal [facility] [place] Comment on above: Performed By: #### A JENA, GFR, CBC, BMP, MORPH, A1C, ADIFF #### [address] [address] Platelet Estimate Normal Normal [facility] [place] Comment on above: Performed By: #### A JENA, GFR, CBC, BMP, MORPH, A1C, ADIFF #### [address] [address] .NEUABSon 09-03-2022 Neutrophil, Absolute 3.4 10 3/mcL Normal 2.9-6.2 [facility] ([place] Comment on above: Performed By: #### A JENA, GFR, CBC, BMP, MORPH, A1C, ADIFF #### [address] [address] A1Con 09-03-2022 HbA1c (Bld) [Mass fraction] 5.2 % Normal 4.3-6.4 [facility] [place] Comment on above: Performed By: #### A JENA, GFR, CBC, BMP, MORPH, A1C, ADIFF #### [address] [address] BMPon 09-03-2022 BUN/Creatinine Ratio 39 ratio High 7-27 [facility] ([place] Comment on above: Performed By: #### A JENA, GFR, CBC, BMP, MORPH, A1C, ADIFF #### [address] [address] Calcium [Mass/Vol] 8.6 mg/dL Normal 8.4-10.2 [facility] [place] Comment on above: Performed By: #### A JENA, GFR, CBC, BMP, MORPH, A1C, ADIFF #### [address] [address] Chloride [Moles/Vol] 105 mmol/L Normal 98-107 [facility] ([place] Comment on above: Performed By: #### A JENA, GFR, CBC, BMP, MORPH, A1C, ADIFF #### [address] [address] CO2 [Moles/Vol] 28 mmol/L Normal 22-29 [facility] [place] Comment on above: Performed By: #### A JENA, GFR, CBC, BMP, MORPH, A1C, ADIFF #### [address] [address] Creatinine [Mass/Vol] 0.64 mg/dL Low 0.70-1.30 [facility] ([place] Comment on above: Performed By: #### A JENA, GFR, CBC, BMP, MORPH, A1C, ADIFF #### [address] [address] Electrolyte Balance 8.0 mEq/L Normal 4.0-15.0 [facility] ([place]) Comment on above: Performed By: #### A JENA, GFR, CBC, BMP, MORPH, A1C, ADIFF #### [address] [address] Glucose [Mass/Vol] 137 mg/dL High 70-105 [facility] [place] Comment on above: Performed By: #### A JENA, GFR, CBC, BMP, MORPH, A1C, ADIFF #### [address] [address] Potassium [Moles/Vol] 3.7 mmol/L Normal 3.5-5.1 [facility] [place] Comment on above: Performed By: #### A JENA, GFR, CBC, BMP, MORPH, A1C, ADIFF #### [place] [address] [place], [place] [address] Sodium [Moles/Vol] 141 mmol/L Normal 136-145 [facility] [place] Comment on above: Performed By: #### A JENA, GFR, CBC, BMP, MORPH, A1C, ADIFF #### [address] [address] Urea nitrogen [Mass/Vol] 25 mg/dL High 7-18 [facility] [place] Comment on above: Performed By: #### A JENA, GFR, CBC, BMP, MORPH, A1C, ADIFF #### [address] [address] CBCon 09-03-2022 Erythrocyte distribution width (RBC) [Ratio] 19.9 % High 11.5-14.5 [facility] [place] Comment on above: Performed By: #### A JENA, GFR, CBC, BMP, MORPH, A1C, ADIFF #### Weight as of 10/25/18: 150.1 kg (331 lb). Most recent hematocrit and potassium results: Hematocrit 44.0 04/15/2002 Potassium 4.0 04/15/2002 ANES DOS/PREOP NOTE: Vitals: 10/30/18 1300 10/30/18 1307 BP: 178/81 Pulse: 75 Resp: 22 Temp: 36.5 ?C (97.7 ?F) TempSrc: Temporal Artery SpO2: 95% ACTIVE PROBLEM LIST Controlled Type 2 Diabetes Mellitus Without Complication, Without Long-Term Current Use of Insulin ([facility]) Anemia Hypertension Borderline Hyperlipidemia Celiac Disease Swelling of Both Lower Extremities Asthma Class 3 Severe Obesity With Serious Comorbidity and Body Mass Index (Bmi) of 50.0 to 59.9 in Adult ([facility]) Hypothyroidism Pain in Right Knee Tear of Medial Meniscus of Knee Gerd (Gastroesophageal Reflux Disease) Sleep Apnea PAST MEDICAL HISTORY Diagnosis Date - Anemia - Asthma - Borderline hyperlipidemia - Celiac disease - Class 3 severe obesity in adult ([facility]) - Diabetes mellitus ([facility]) - Hypertension - Swelling of lower extremity - Tear of medial meniscus of knee 2018 PAST SURGICAL HISTORY Procedure Laterality Date - COLONOSCOPY 2018 - ENDOSCOPY PROC 2019 - KNEE LEFT OP SURGERY 1996, 2002 Left knee arthroscopy x2 FAMILY HISTORY Problem Relation Age of Onset - Parkinsonism Mother - No Known Problems Father Social History: Social History Tobacco Use - Smoking status: Never Smoker - Smokeless tobacco: Never Used Substance Use Topics - Alcohol use: Not Currently - Drug use: Never No current facility-administere d medications on file prior to encounter. Current Outpatient Medications on File Prior to Encounter: meloxicam (MOBIC) 15 mg tablet Take 1 tablet by mouth once daily. (Patient not taking: Reported on 10/25/2018 ) No current facility-administere d medications for this encounter. Allergies: ALLERGIES No Known Allergies DOS EXAM: Adequate NPO Status: Yes Anesthetic Risks, Benefits, Alternatives, Personnel and Consent Discussed: Yes Patient agrees to proceed: Yes Previous Anesthesia: No history of adverse event Airway Assessment: MP 2; Neck ROM: Full ROM without neurologic symptoms; Airway Evaluation: No significant abnormalities Symptoms of Sleep Apnea: None Dentition: Teeth intact Additional Physical Exam: Lungs: Patient health status unchanged since recent history and physical. See history and physical for exam findings. Cardiac: Patient health status unchanged since recent history and physical. See history and physical for exam findings. Additional Pertinent Findings: N/A Blood Products: Not anticipated for this procedure Anesthetic Plan: General Anesthetic Monitoring: Standard ASA Monitors Pain Management Plan: Parenteral or Oral ASA Class: 3 Other Medical Problems: None Chronic Beta Ayad medication administered within 24 hours: N/A I have interviewed and examined the patient. I have reviewed the medical record and/or the pre-anesthesia evaluation, pertinent labs, and test results. Significant changes in the patient's condition since the History and Physical, not otherwise documented in primary service progress notes: No This contains updated information obtained within 48 hours of Surgery/Procedure. SIGNATURE: Selvin Lester MD PATIENT NAME: Alexia Carpenter DATE: October 30, 2018 TIME: 1:08 PM CSN: [id number] [facility] BRIEF OP NOTon 10-30-2018 BRIEF OP NOT HNO ID: [id number] Author: Sherif Ruby Service: Orthopaedic Surgery Author Type: Physician Type: Brief Op Note Filed: 10/30/2018 2:56 PM Note Text: OPERATIVE/PROCEDURE REPORT LOG ID: [id number] SURGERY/PROCEDURE DATE: 10/30/2018 INCISION/PROCEDURE START TIME: 2:38 PM INCISION CLOSE/PROCEDURE END TIME: SURGEON(S)/PROCEDURA LIST(S) AND SENIOR JAVA UI DEVELOPER(S): Surgeon(s) and Role: * Sherif Ruby - Primary Physician Occupational Therapist Rehab Manager: Ashley Tejada (Pa) SURGERY/PROCEDURE(S) : Right DAK PMM ANESTHESIA: General SURGERY/PROCEDURE DETAILS: above PRE-OP/PRE-PROCEDURE DIAGNOSIS: right knee MMT POST-OP/POST-PROCEDU RE DIAGNOSIS: * No post-op diagnosis entered * same ESTIMATED BLOOD LOSS: 0 ml SPECIMENS: None IMPLANTABLE DEVICES: None DRAINS: None COMPLICATIONS: None PARTICIPATION IN SURGERY/PROCEDURE: I/primary surgeon/proceduralis t performed the procedure with assistance. No qualified resident/fellow was available. SIGNATURE: Sherif Ruby MD FACS PATIENT NAME: Alexia Carpenter DATE: October 30, 2018 TIME: 2:55 PM PAGER/CONTACT #: [facility] OPERATIVE NOon 10-30-2018 OPERATIVE NO HNO ID: [id number] Author: Sherif Ruby Service: Orthopaedic Surgery Author Type: Physician Type: Operative Report Filed: 10/31/2018 8:45 AM Note Text: [facility] - Operative Report [address] [place] [address] [place] : 1965 AGE: 53. SEX: M PATIENT TYPE: [place] [facility] LOCATION: [place] [address] ATTENDING PHYSICIAN: Sherif Ruby M.D. CSN NUMBER: [id number] DATE OF SURGERY/PROCEDURE: 10/30/2018 INCISION/PROCEDURE START TIME: 1438. INCISION CLOSE/PROCEDURE END TIME: 1458. PREOPERATIVE DIAGNOSIS: 1. Medial meniscal tear of the right knee. 2. Morbid obesity. POSTOPERATIVE DIAGNOSIS: 1. Medial meniscal tear of the right knee. 2. Morbid obesity. SURGEON: Sherif Ruby M.D. SENIOR JAVA UI DEVELOPER: Ashley Tejada PA-C. SURGERY/PROCEDURE: Arthroscopic partial medial meniscectomy of the right knee. ANESTHESIA: General. INDICATIONS: The patient was seen with complaints of knee pain attributable to the above and elected to undergo surgical procedure to relieve pain. ESTIMATED BLOOD LOSS: Zero. SPECIMENS: None. DESCRIPTION OF PROCEDURE: The patient was brought to operating room and laid supine on the operating table. General anesthesia was administered by the Anesthesia Department without complication. The patient was prepped and draped in usual sterile fashion. It should be noted that through the patient's excessive BMI, positioning as well as technical demand on the case was increased significantly over baseline efforts. After the tourniquet was elevated to 300 mmHg, michael anteromedial, anterolateral, superomedial egress portals were made using an #11 blade scalpel. Examination began with the patellofemoral articulation. There was seen to be grade 2 to grade 3 fissuring in the patella with a normal trochlea. Medial and lateral gutters did not reveal any loose bodies. Examination of the lateral compartment showed intact cartilage surfaces and intact lateral meniscus. Examination of medial compartment showed complex posterior horn to body tear of the medial meniscus, which resected back to stable border. Cartilaginous surfaces themselves were found to be relatively normal. Portals were closed using simple nylon suture. Bulky sterile compressive dressing was applied. The patient was taken from the operating room to recovery room in awake and stable condition with no complication. The primary surgeon performed the entire procedure with daycare assistant helping with wound closure, dressing application, and protection of neurovascular structures. Sherif Ruby M.D. MARSHAS:[id number] /[id number] cc: [facility] PT EDon 10-30-2018 PT ED HNO ID: [id number] Author: Leidy Garay) LISY Mera Service: ? Author Type: Registered Nurse Type: Patient Education Filed: 10/30/2018 3:21 PM Note Text: POST OP LEARNING RESPONSE INSTRUCTION PROVIDED TO: Patient and family member METHOD OF INSTRUCTION: Individual instruction Written instruction - handouts Verbal instruction PATIENT / FAMILY RESPONSE: Verbalizes understanding of: INFECTION MANAGEMENT-Signs and symptoms of an infection and importance of contacting the physician MEDICAL REGIMEN-Importance of following prescribed medical regimen MEDICATION DOSE MISSED-Correct action to take if medication dose is missed MEDICATION PRESCRIBED-Accurate knowledge of prescribed medication prior to discharge MEDICATION ROUTE-Correct route for administration of the prescribed medication MEDICATION SIDE EFFECTS-Side effects associated with the medication that warrant a call to the physician PAIN MANAGEMENT-Effective strategies to manage pain in addition to pain medication PHYSICAL RESTRICTIONS-Physica l restrictions and recommendations after discharge from the hospital POST-OPERATIVE INSTRUCTIONS-Correct actions to take to reduce postoperative complications PATIENT SAFETY PRINCIPLES WORSENING CONDITION-Signs and symptoms of a worsening condition that warrant a call to the physician WOUND CARE-Correct procedure to perform wound care FOLLOW-UP PLAN: Patient instructed to call with any further issues SUPPLEMENTAL MATERIAL: [employer] Handout REFERRAL (RECOMMENDATION): None Electronically Signed By: Leidy Mera RN In Department: AMBULATORY SURGERY [facility] PT ED HNO ID: [id number] Author: Porsha Garay) Jessa Service: ? Author Type: Registered Nurse Type: Patient Education Filed: 10/30/2018 1:06 PM Note Text: PRE OP LEARNING ASSESSMENT PROCEDURE/SURGERY: SURGERY: right knee arthroscopy READINESS TO LEARN COGNITIVE ABILITY: Alert and oriented MOTIVATION TO LEARN: Eager Interested FAMILY SUPPORT: High - Very involved in pt care PATIENT LEARNS BEST BY: Individual Instruction Written Instruction - Hand-outs Verbal Instruction FACTORS AFFECTING LEARNING: None PHYSICAL LIMITATIONS AFFECTING LEARNING: None Electronically Signed By: Porsha Germain RN In Department: AMBULATORY SURGERY [facility] NURSING PROGon 10-26-2018 NURSING PROG HNO ID: [id number] Author: Bernarda Velez RN Service: Neurosurgery Author Type: Registered Nurse Type: Nursing Progress Note Filed: 10/26/2018 7:48 AM Note Text: PACC Nurse Progress Note History AND Physical: PACC Visit Date: 10-25-18 Original HANDP Date: N/A ED visit Date: N/A Outside HANDP Scanned Date: N/A Labs Within Last 6 Months: N/A Imaging Within Last 12 Months: N/A Cardiac Testing: N/A BMI Percentile (PEDS): N/A Risk Assessment: N/A Anesthesia Review: N/A Narrative: N/A Pre-op Considerations: diabetic Chart Check: COMPLETED Bernarda Velez RN October 26, 2018 7:48 AM [facility] HISTORY PHYSICALon 9 HISTORY PHYSICAL HNO ID: [id number] Author: Nasrin Oneill Service: ? Author Type: Nurse Practitioner Type: HANDP Filed: 10/29/2018 10:51 AM Note Text: HISTORY AND PHYSICAL EXAMINATION SERVICE DATE: 10/25/2018 SERVICE TIME: 10:00 PRIMARY CARE PHYSICIAN: Osvaldo Harley NP REASON FOR VISIT: Alexia Carpenter is a 53 year old male who is scheduled for arthroscopy knee meniscectomy medial or lateral at the request of Dr. Sherif Ruby for consultation. My final recommendation will be communicated back to the requesting physician by way of shared medical record or letter. The patient has the following: ACTIVE PROBLEM LIST Controlled Type 2 Diabetes Mellitus Without Complication, Without Long-Term Current Use of Insulin ([facility]) Anemia Hypertension Borderline Hyperlipidemia Celiac Disease Swelling of Both Lower Extremities Asthma Class 3 Severe Obesity With Serious Comorbidity and Body Mass Index (Bmi) of 50.0 to 59.9 in Adult ([facility]) Hypothyroidism Pain in Right Knee Tear of Medial Meniscus of Knee Gerd (Gastroesophageal Reflux Disease) Sleep Apnea Subjective CHIEF COMPLAINT: Pre-Op Exam HPI: Patient presents today with tear of medial meniscus of right knee. Patient states right knee pain presented originally last January. He describes the pain as sharp pain with burning that does not radiate. He states the pain is aggravated with turning and twisting his leg as well as with activity and weight bearing. He has taken Mobic prn for pain without relief of symptoms. He has not completed any PT. He states the pain has woken him multiple times throughout the night if he repositions himself in bed. Received one Cortisone injection on 10/01/18 which provided him with pain relief x1 week. Had MRI 09/24/18 which showed medial meniscal tear in two locations and loss of lateral patellar facet cartilage. PAST MEDICAL HISTORY Diagnosis Date - Anemia - Asthma - Borderline hyperlipidemia - Celiac disease - Class 3 severe obesity in adult ([facility]) - Diabetes mellitus ([facility]) - Hypertension - Swelling of lower extremity - Tear of medial meniscus of knee 2018 PAST SURGICAL HISTORY Procedure Laterality Date - COLONOSCOPY 2019 - ENDOSCOPY PROC 2019 - KNEE LEFT OP SURGERY 1996, 2002 Left knee arthroscopy x2 FAMILY HISTORY Problem Relation Age of Onset - Parkinsonism Mother - No Known Problems Father SOCIAL HISTORY: Social History Socioeconomic History Marital status: Spouse name: Not on file Number of children: Not on file Years of education: Not on file Highest education level: Not on file Occupational History Not on file Social Needs Financial resource strain: Not on file Food insecurity: Worry: Not on file Inability: Not on file Transportation needs: Medical: Not on file Non-medical: Not on file Tobacco Use Smoking status: Never Smoker Smokeless tobacco: Never Used Substance and Sexual Activity Alcohol use: Not Currently Drug use: Never Sexual activity: Not on file Lifestyle Physical activity: Days per week: Not on file Minutes per session: Not on file Stress: Not on file Relationships Social connections: Talks on phone: Not on file Gets together: Not on file Attends cheondoism service: Not on file Active member of club or organization: Not on file Attends meetings of clubs or organizations: Not on file Relationship status: Not on file Intimate partner violence: Fear of current or ex partner: Not on file Emotionally abused: Not on file Physically abused: Not on file Forced sexual activity: Not on file Other Topics Concerns: Not on file Social History Narrative Not on file MEDICATIONS: Prior to Admission medications as of 10/25/18 1124 Medication Sig Last Dose Taking FERROUS SULFATE ORAL Take 1 tablet by mouth twice daily. Taking Yes albuterol HFA (PROAIR HFA) 90 mcg/actuation inhaler Inhale 108 mcg as instructed as needed. Taking Yes fenofibrate nanocrystallized (TRICOR) 48 mg tablet Take 48 mg by mouth daily at bedtime. Taking Yes furosemide (LASIX) 20 mg tablet Take 20 mg by mouth daily at bedtime. Taking Yes levothyroxine 175 mcg cap Take 175 mcg by mouth once daily. Taking Yes lisinopril-hydrochlo rothiazide (PRINZIDE,ZESTORETIC ) 10-12.5 mg per tablet Take 10-12.5 tablets by mouth once daily. Taking Yes montelukast (SINGULAIR) 10 mg tablet Take 10 mg by mouth once daily. Taking Yes pioglitazone-metFORM IN 15-850 mg per tablet Take 15-180 tablets by mouth twice daily. Taking Yes potassium chloride SR (MICRO-K) 10 mEq CR capsule Take 10 mEq by mouth once daily. Taking Yes Ranitidine HCl 300 mg tablet Take 300 mg by mouth q 12 HR. Taking Yes traMADol-acetaminoph en (ULTRACET) 37.5-325 mg per tablet Take 1 tablet by mouth every 6 hours. Taking Yes meloxicam (MOBIC) 15 mg tablet Take 1 tablet by mouth once daily. Patient not taking: Reported on 10/25/2018 Not Taking No medication comments found. CURRENT ALLERGIES: ALLERGIES No Known Allergies REVIEW OF SYSTEMS: PAIN ASSESSMENT: Pain Pain Level: 8 Pain Location: Knee-Right Description: Aching Frequency: Continuous Intervention: Medication;Repositio n;Relaxation General: No weight loss, malaise or fevers. Neuro: No history of TIA's, stroke, DAYCARE ASSISTANT tumor, impaired sensorium, hemiplegia, paraplegia or quadraplegia. No neurological symptoms or problems. Respiratory: (+) Asthma- worse in cold months/winter. Uses Proair prn, martinez snot used it since April. (+) Dry cough- chronic, at nighttime. (+) Obstructive Sleep Apnea- uses CPAP No history of SOB, COPD, bronchitis, pneumonia within the last 6 weeks, PE. Cardiovascular: (+) HTN, on Rx, managed by PCP. (+) Borderline HLD- on Rx. (+) Chronic lower extremity edema- on Rx. Has noticed improvement in swelling since he has lost weight (22lb in the last month) due to cutting out gluten with recent Celiac diagnosis. No history of cardiac surgery or stents, dizziness, palpitations, NV, CHF, CP, PVD. GI: (+) Celiac Disease- recent diagnosis. Has cut out all Gluten from diet. (+) Diarrhea, has improved with removal of Gluten from diet (+) GERD, on Rx. No history of nausea, vomiting, constipation, dysphagia, liver disease, blood in the stool or abdominal pain : No history of dysuria, frequency or incontinence,, stones or chronic kidney disease, No difficulty urinating, nocturia > 1 time per night or hematuria Endocrine: (+) Diabetic Mellitus- Checks blood glucose daily before breakfast- results usually 110-140, on oral agents. Managed by PCP. (+) Hypothyroidism. No history of taking steroids within the past 30 days. Hematology: (+) Iron deficency anemia- anemia has been present for the past 3 years, recent colonoscopy diagnosed Celiac Disease. S/P Iron infusion in 09/21. No history of bleeding or clotting disorder. No history of low platelets. Oncology: No history of CA metastasis, chemo within 30 days, or radiotherapy within 90 days. Has not lost 10% of body wt in 6 months. No history of oncological symptoms or problems. Psych: No history of psychiatric symptoms or problems. Musculoskeletal: See HPI- Back pain, degeervative disc disease Skin: Negative for lesions, rash and itching. Objective PHYSICAL EXAM: VITALS: BP 163/69 Pulse 83 Temp (Src) 97.1 (Tympanic) Resp 16 Ht 5' 7 (1.70m) Wt 331 lb (150.1kg) SpO2 95% BMI 51.83 kg/(m2). General: Alert and oriented, No acute distress, Morbidly obese Skin: Normal color, no rash, no lesions. HEENT: EOM, pupils equal, round and reactive., No carotid bruits Cardiovascular: Normal S1 AND S2, no rubs, murmurs or gallops. No JVD. Pulse regular. Lungs: Normal breath sounds, no wheezes or crackles., No chest deformities or chest wall tenderness. Abdomen: Soft, non-tender, no rigidity., No masses or organomegaly., Positive bowel sounds Extremities: No deformity, tenderness, no joint swelling or clubbing. Positive for +3 nonpitting edema in bilateral lower extremities. Neurological: Normal cognition and motor skills. Pulses: Pedal pulses; left 1+ / right 1+. Diagnostic tests reviewed for today's visit: Lab Value Units Date High Low HB No results within date range. HCT No results within date range. WBC No results within date range. PLT No results within date range. NA No results within date range. K No results within date range. GLUC No results within date range. BUN No results within date range. CREAT No results within date range. PTSEC No results within date range. INR No results within date range. APTT No results within date range. ALT No results within date range. AST No results within date range. TBILI No results within date range. TSH No results within date range. Lab Value Units Date High Low HCGQT No results within date range. UHCG No results within date range. HCG, BODY* No results within date range. Lab Value Units Date High Low ABORHD No results within date range. ABSCREEN No results within date range. No results found for: HBA1C Most recent labs Most recent imaging All in Epic Assessment/Plan Hypertension Assessment: BP today 179/75, rechecked 163/69, asymptomatic,on Rx. Managed by PCP. Borderline hyperlipidemia Assessment: Controlled,on Rx. Asthma Assessment: Mild, intermittent. Usually only flares up in cold weather. Uses Proair prn. Has not had to use Proair since April Celiac disease Assessment: Recent diagnosis s/p Colonoscopy with Dr. Pruitt. Has cut gluten out of diet, has since lost 22lbs. GERD (gastroesophageal reflux disease) Assessment: Controlled on Rx. Controlled type 2 diabetes mellitus without complication, without long-term current use of insulin ([facility]) Assessment: Checks blood glucose daily before breakfast- glucose readings 110-140. On Oral Agents- follows with PCP. Last HgbA1c drawn in office 06/2018 6.5%. Hypothyroidism Assessment: Controlled, on Rx. Anemia Assessment: Iron deficiency- s/p x3 Iron Infusions in September. Last HANDH result from 10/24/18- 13.6/43.8 Per patient related to recent diagnosis of Celiac Disease- following with Dr. Pruitt GI. Class 3 severe obesity with serious comorbidity and body mass index (BMI) of 50.0 to 59.9 in adult ([facility]) Assessment: Body mass index is 51.84 kg/m?. Recent weight loss of 22lbs, since cutting gluten from diet. Swelling of both lower extremities Assessment: Chronic- on Rx. Has improved with recent weight loss. Sleep apnea Assessment: Uses CPAP at . METS: Climb a flight of stairs or walk up a hill (5.50 METs) Patient denies any chest pain or undue shortness of breath with the above physical activity. ASA Class: 3 ANESTHESIA FINDINGS: Intubation History: No prior intubation history Significant Anesthesia Considerations: None Airway Exam: General: Morbid obesity Mallampati Score is CLASS III ULBT: Class III - Lower incisors cannot bite the upper lip Neck: Normal appearance and function, Distance from hyoid to mentum during neck extension is at least 3 finger breaths, Short neck Mouth: Normal tongue size Dentition: Intact Airway History: No prior intubation STOP BANG Score: PHILLIP uses CPAP/BiPAP PLAN Last HgbA1c results obtained from PCPs office- This patient is optimally prepared for surgery pending LABS and DOS blood glucose. Labs obtained from PCP- Scanned into [employer] FYI sent to anesthesia in regards to patients history of extreme gag reflex and BMI. Ok to proceed at [facility] per Anesthesia review CONSULTS: Patient does not require consults for optimization at this time. The Following Tests/Procedures Have Been Initiated: Labs not indicated per [facility] protocol, EKG not indicated per [facility] protocol Planned Anesthetic: General Instructions Given to Patient: Patient given verbal and written preop instructions and voices comprehension and compliance. @ASSESSEND@ SIGNATURE: Nasrin Oneill APRN.PROGRAM MANAGEMENT SPECIALIST PATIENT NAME: Alexia Carpenter DATE: October 25, 2018 TIME: 9:45 AM PAGER/CONTACT #: [facility] HOSPon 10-24-2018 HOSP Patient:Alexia Carpenter MRN: Height:5' 7 (1.702 m) Weight:331 lb (150.141 kg) Outpatient Medications as of 10/30/18: FERROUS SULFATE ORAL albuterol HFA (PROAIR HFA) 90 mcg/actuation inhaler fenofibrate nanocrystallized (TRICOR) 48 mg tablet furosemide (LASIX) 20 mg tablet levothyroxine 175 mcg cap lisinopril-hydrochlo rothiazide (PRINZIDE,ZESTORETIC ) 10-12.5 mg per tablet montelukast (SINGULAIR) 10 mg tablet pioglitazone-metFORM IN 15-850 mg per tablet potassium chloride SR (MICRO-K) 10 mEq CR capsule Ranitidine HCl 300 mg tablet traMADol-acetaminoph en (ULTRACET) 37.5-325 mg per tablet meloxicam (MOBIC) 15 mg tablet Admission/Clinic Administered Medications as of 10/30/18: lidocaine 10 mg/mL (1 %) 1-2 mg injection (XYLOCAINE) lactated ringers infusion ceFAZolin 3 g in D5W 100 mL (ANCEF) Problem List: Controlled type 2 diabetes mellitus without complication, without long-term current use of insulin (HCC) [E11.9] Anemia [D64.9] Hypertension [I10] Borderline hyperlipidemia [E78.5] Celiac disease [K90.0] Swelling of both lower extremities [M79.89] Asthma [J45.909] Class 3 severe obesity with serious comorbidity and body mass index (BMI) of 50.0 to 59.9 in adult (HCC) [E66.01, Z68.43] Hypothyroidism [E03.9] Pain in right knee [M25.561] Tear of medial meniscus of knee [S83.249A] GERD (gastroesophageal reflux disease) [K21.9] Sleep apnea [G47.30] Tear of medial meniscus of right knee, current, subsequent encounter [S83.241D] Allergies: No Known Allergies Date Verified:10/30/18 Lab Values No results within the last 30 days for the following basenames: K,HCT Progress Notes ([facility]): Brianne Kelly RN 10/22/2018 3:54 PM Signed Patient calls with c/o pain: Location: lateral side right knee Intensity: 3-9/10 Character: burning and sharp Frequency: constant Duration: 6 months, worsened past 4 days Aggravating: standing and walking Alleviating Factors: ice, Patient is taking Ibuprofen and Aleve. Per patient this is not effective for pain but does help with swelling. Patient is on his feet at work and would like medication to help him get through work until the surgery date, 11/30/18. Per patient, cortisone injection was effective for almost 2 weeks Please advise. Patient is requesting a return call from our office. Brianne Tejada PA-C 10/22/2018 4:29 PM Signed The following approved medication requests have been transmitted electronically. Signed Prescriptions Disp Refills meloxicam (MOBIC) 15 mg tablet 45 tablet 0 Sig: Take 1 tablet by mouth once daily. Authorizing Provider: ASHLEY TEJADA) Called the patient and let him know that the prescription had been transmitted to his pharmacy. HÉCTOR Gaffney RN 10/23/2018 12:50 PM Signed Patient has tried the Meloxicam, it has helped the swelling but not the pain. Cannot stand on his rt leg d/t the pain. Can Tramadol or something else be prescribed. Surgery 11/30/2018 Ashley Tejada PA-C 10/24/2018 8:54 AM Signed Called and spoke on the phone with the patient. Advised that he should continue taking the meloxicam since it is helping with swelling. Let him know that we do not prescribe narcotics pre-operatively. He would like to move his surgery day up from 11/30. I will have someone reach out from the office to try and get him rescheduled. HÉCTOR Gaffney [facility] 10/24/2018 10:31 AM Signed I called patient and offered him an earlier surgery date. He was rescheduled to October 30, 2018 in [place]. Patient agreed and will call to get a pre-admission testing appointment. Kelsey Tee [facility] Progress Notes ([facility]): Sherif Ruby MD [facility] 10/01/2018 3:48 PM Signed Patient returns see me for his right knee. He's been dealing with right knee pain now for some time. Is not improved despite conservative care. He continues to complain of medial sided knee pain that actually is worsening. ROS Musculoskeletal: See history of present illness. Neurological: Denies numbness and tingling in upper or lower extremities Social History Tobacco Use - Smoking status: Never Smoker - Smokeless tobacco: Never Used Substance Use Topics - Alcohol use: Not Currently - Drug use: Never Current Outpatient Medications: aspirin(ECOTRIN LOW STRENGTH 81 MG TAB) Take one(1) tablet daily. CELEBREX 200MG CAPSULE Take one(1) capsule daily. ULTRACET TABLET Take one(1) capsule daily AUGMENTIN 875-125 TABLET po bid No current facility-administere d medications for this visit. Clinical examination: 53-year-old male no acute distress. Alert and oriented times 3. 5 foot 7 inches tall 334 pounds. BMI of 52. Knee shows positive medial joint line tenderness. Assessment of effusion is difficult secondary soft tissue envelope. Radiologic review: MRI ordered by me in to my interpretation is consistent with medial meniscal tear in 2 locations and loss of lateral patellar facet cartilage. Clinical impression: #1 medial meniscal tear right knee #2 chondromalacia patella. Patient is undergone successful left knee arthroscopy in the past and wishes to proceed with on the right however he has other issues going on in this time and would like to hold off until after November. Consents were signed for the surgery we did administer cortisone injection for temporizing pain relief. 8mg of dexamethasone and 40mg of depomedrol was injected under sterile conditions as noted in dictation. We discussed the risks, benefits, goals, expectations, outcomes, and complications including nerve injury and vascular injury as well as the possibility of failure of the surgical procedure to remedy the complaint. All the patient's questions were answered to their satisfaction. Consents were then signed. The risk, benefits and alternatives of injection and no injection therapy were discussed. The patient consented for an injection. The patient has been identified by name and birthdate. The injection site was identified, marked and prepped with a betadine swab. . The site noted above was/were injected with a 25 gauge needle with medications noted above. The injection site was then dressed with a bandaid. The patient tolerated the injection well. The patient was instructed to monitor their blood sugars if appropriate and if diabetic and call if any concerns. The patient was instructed to call the office if any adverse local effects occurred or any if any questions or concerns arise. At the conclusion of the office visit, the patient was asked if they had any questions regarding the diagnosis or care. Also, ample time was provided for the patient to ask any questions regarding the diagnosis therefore plan of care. All the patient's questions if asked were answered to their satisfaction. This note was partially generated using [employer] voice recognition system and as such may contain grammatical or word errors [facility] OBSOLETEon 10-24-2018 OBSOLETE Procedure (ORMDNA) ALEXIA CARPENTER ([id number]) 1965 M Date Time Provider Department 10/24/18 SHERIF RUBY During your visit today, we recorded the following information about you: Allergies As of Date: 10/24/2018 (No Known Allergies) Date Reviewed: 10/01/2018 Reviewed by: Sherif Ruby - Fully Assessed Reason for Visit: Schedule Surgery [1330] Primary Visit Diagnosis:Tear of medial meniscus of right knee, current, unspecified tear type, subsequent encounter [S81.926D] Other Visit Diagnosis:Chronic pain of right knee [M25.561, G89.29] Order(s):SURGICAL REQUEST - ELECTIVE [[id number]] Order #: [id number]: 1 Prescriptions as of 10/24/2018 Sig: MELOXICAM 15 MG TABLET Take 1 tablet by mouth once d* * ECOTRIN LOW STRENGTH 81 MG TA* Take one(1) tablet daily. * ULTRACET 37.5 MG-325 MG TABLET Take one(1) capsule daily * AUGMENTIN 875 MG-125 MG TABLET po bid Problem List As Of Date 10/24/2018 Noted Resolved Left Knee Pain [M25.562] INVALID FOR* Encounter Status:Closed by KELSEY OROPEZA on 10/24/18 [facility] CNPLily 10-22-2018 CNPN Telephone (ORNA) ALEXIA CARPENTER ([id number]) 1965 M Date Time Provider Department 10/22/18 SHERIF RUBY During your visit today, we recorded the following information about you: Brianne Kelly RN 10/22/2018 3:54 PM Signed Patient calls with c/o pain: Location: lateral side right knee Intensity: 3-9/10 Character: burning and sharp Frequency: constant Duration: 6 months, worsened past 4 days Aggravating: standing and walking Alleviating Factors: ice, Patient is taking Ibuprofen and Aleve. Per patient this is not effective for pain but does help with swelling. Patient is on his feet at work and would like medication to help him get through work until the surgery date, 11/30/18. Per patient, cortisone injection was effective for almost 2 weeks Please advise. Patient is requesting a return call from our office. Brianne Tejada PA-C 10/22/2018 4:29 PM Signed The following approved medication requests have been transmitted electronically. Signed Prescriptions Disp Refills meloxicam (MOBIC) 15 mg tablet 45 tablet 0 Sig: Take 1 tablet by mouth once daily. Authorizing Provider: ASHLEY TEJADA) Called the patient and let him know that the prescription had been transmitted to his pharmacy. HÉCTOR Gaffney RN 10/23/2018 12:50 PM Signed Patient has tried the Meloxicam, it has helped the swelling but not the pain. Cannot stand on his rt leg d/t the pain. Can Tramadol or something else be prescribed. Surgery 11/30/2018 Ashley Tejada PA-C 10/24/2018 8:54 AM Signed Called and spoke on the phone with the patient. Advised that he should continue taking the meloxicam since it is helping with swelling. Let him know that we do not prescribe narcotics pre-operatively. He would like to move his surgery day up from 11/30. I will have someone reach out from the office to try and get him rescheduled. HÉCTOR Gaffney [facility] 10/24/2018 10:31 AM Signed I called patient and offered him an earlier surgery date. He was rescheduled to October 30, 2018 in [place]. Patient agreed and will call to get a pre-admission testing appointment. Kelsey Stout [facility] Allergies As of Date: 10/22/2018 (No Known Allergies) Date Reviewed: 10/01/2018 Reviewed by: Sherif Ruby - Fully Assessed Reason for Visit: Pain [78] Primary Visit Diagnosis:Chronic pain of right knee [M25.561, G89.29] Order(s):meloxicam (MOBIC) 15 mg tabletTake 1 tablet by mouth once daily.Disp: 45 tabletRfl: 0 Prescriptions as of 10/22/2018 Sig: MELOXICAM 15 MG TABLET Take 1 tablet by mouth once d* * ECOTRIN LOW STRENGTH 81 MG TA* Take one(1) tablet daily. * ULTRACET 37.5 MG-325 MG TABLET Take one(1) capsule daily * AUGMENTIN 875 MG-125 MG TABLET po bid Problem List As Of Date 10/22/2018 Noted Resolved Left Knee Pain [M25.562] INVALID FOR* Prescriptions ordered this encounter Disp Refills Start End MELOXICAM 15 MG TABLET 45 t* 0 10/22/2018 Cmt: Discussed with Dr. Ruby. Route: ORAL Sig: Take 1 tablet by mouth once daily. Medications Discontinued During This Encounter CELEBREX 200MG CAPSULE 0 04/15/2002 10/22/2018 Class: Historical Med Sig: Take one(1) capsule daily. Disc: Course of therapy completed Encounter Status:Closed by ASHLEY TEJADA on 10/22/18 [facility] OBSOLETEon 10-18-2018 OBSOLETE Procedure (ORMDNA) ALEXIA CARPENTER ([id number]) 1965 M Date Time Provider Department 10/18/18 SHERIF RUBY During your visit today, we recorded the following information about you: Allergies As of Date: 10/18/2018 (No Known Allergies) Date Reviewed: 10/01/2018 Reviewed by: Sherif Ruby - Fully Assessed Reason for Visit: Schedule Surgery [1330] Primary Visit Diagnosis:Tear of medial meniscus of right knee, current, unspecified tear type, subsequent encounter [S83.241D] Order(s):SURGICAL REQUEST - ELECTIVE [[id number]] Order #: [id number]: 1 Prescriptions as of 10/18/2018 Sig: * ECOTRIN LOW STRENGTH 81 MG TA* Take one(1) tablet daily. * CELEBREX 200 MG CAPSULE Take one(1) capsule daily. * ULTRACET 37.5 MG-325 MG TABLET Take one(1) capsule daily * AUGMENTIN 875 MG-125 MG TABLET po bid Problem List As Of Date 10/18/2018 Noted Resolved Left Knee Pain [M25.562] INVALID FOR* Encounter Status:Closed by KELSEY OROPEZA on 10/18/18 [facility] CNOVon 10-01-2018 CNOV Office Visit (ORNA) ALEXIA CARPENTER ([id number]) 1965 M Date Time Provider Department 10/01/18 3:15 PM SHERIF RUBY During your visit today, we recorded the following information about you: Weight Height 151.5 kg 1.702 m Sherif Ruby MD [facility] 10/01/2018 3:48 PM Signed Patient returns see me for his right knee. He's been dealing with right knee pain now for some time. Is not improved despite conservative care. He continues to complain of medial sided knee pain that actually is worsening. ROS Musculoskeletal: See history of present illness. Neurological: Denies numbness and tingling in upper or lower extremities Social History Tobacco Use - Smoking status: Never Smoker - Smokeless tobacco: Never Used Substance Use Topics - Alcohol use: Not Currently - Drug use: Never Current Outpatient Medications: aspirin(ECOTRIN LOW STRENGTH 81 MG TAB) Take one(1) tablet daily. CELEBREX 200MG CAPSULE Take one(1) capsule daily. ULTRACET TABLET Take one(1) capsule daily AUGMENTIN 875-125 TABLET po bid No current facility-administere d medications for this visit. Clinical examination: 53-year-old male no acute distress. Alert and oriented times 3. 5 foot 7 inches tall 334 pounds. BMI of 52. Knee shows positive medial joint line tenderness. Assessment of effusion is difficult secondary soft tissue envelope. Radiologic review: MRI ordered by me in to my interpretation is consistent with medial meniscal tear in 2 locations and loss of lateral patellar facet cartilage. Clinical impression: #1 medial meniscal tear right knee #2 chondromalacia patella. Patient is undergone successful left knee arthroscopy in the past and wishes to proceed with on the right however he has other issues going on in this time and would like to hold off until after November. Consents were signed for the surgery we did administer cortisone injection for temporizing pain relief. 8mg of dexamethasone and 40mg of depomedrol was injected under sterile conditions as noted in dictation. We discussed the risks, benefits, goals, expectations, outcomes, and complications including nerve injury and vascular injury as well as the possibility of failure of the surgical procedure to remedy the complaint. All the patient's questions were answered to their satisfaction. Consents were then signed. The risk, benefits and alternatives of injection and no injection therapy were discussed. The patient consented for an injection. The patient has been identified by name and birthdate. The injection site was identified, marked and prepped with a betadine swab. . The site noted above was/were injected with a 25 gauge needle with medications noted above. The injection site was then dressed with a bandaid. The patient tolerated the injection well. The patient was instructed to monitor their blood sugars if appropriate and if diabetic and call if any concerns. The patient was instructed to call the office if any adverse local effects occurred or any if any questions or concerns arise. At the conclusion of the office visit, the patient was asked if they had any questions regarding the diagnosis or care. Also, ample time was provided for the patient to ask any questions regarding the diagnosis therefore plan of care. All the patient's questions if asked were answered to their satisfaction. This note was partially generated using [employer] voice recognition system and as such may contain grammatical or word errors Referring Provider: SHERIF RUBY [[id number]] Allergies As of Date: 10/01/2018 (No Known Allergies) Date Reviewed: 10/01/2018 Reviewed by: Sherif Ruby - Fully Assessed Reason for Visit: Established Patient [175] Right Knee Pain [1209] Results - Mri [3561] Primary Visit Diagnosis:Right knee pain, unspecified chronicity [M25.561] Other Visit Diagnoses:Tear of medial meniscus of right knee, current, unspecified tear type, subsequent encounter [S83.672D] Chondromalacia of right patella [M22.41] Order(s):dexamethaso ne sodium phosphate 8 mg injection (DECADRON)Disp: Rfl: lidocaine (PF) 10 mg/mL (1 %) 10 mg injection (XYLOCAINE)Disp: Rfl: methylPREDNISolone acetate 40 mg injection (DEPO-Medrol)Disp: Rfl: Prescriptions as of 10/01/2018 Sig: * ECOTRIN LOW STRENGTH 81 MG TA* Take one(1) tablet daily. * CELEBREX 200 MG CAPSULE Take one(1) capsule daily. * ULTRACET 37.5 MG-325 MG TABLET Take one(1) capsule daily * AUGMENTIN 875 MG-125 MG TABLET po bid Problem List As Of Date 10/01/2018 Noted Resolved Left Knee Pain [M25.562] INVALID FOR* Prescriptions ordered this encounter Disp Refills Start End DEXAMETHASONE 4 MG/ML INJECTION SOLU* 10/01/2018 10/01/2018 Route: IAtc LIDOCAINE (PF) 10 MG/ML (1 %) INJECT* 10/01/2018 10/01/2018 Route: OTHER METHYLPREDNISOLONE ACETATE 40 MG/ML * 10/01/2018 10/01/2018 Route: IAt Encounter Status:Closed by SHERIF RUBY MD, FACS on 10/01/18 [facility] PROGRESSon 10-01-2018 PROGRESS HNO ID: [id number] Author: Sherif Ruby Service: ? Author Type: Physician Type: Progress Notes Filed: 10/01/2018 3:48 PM Note Text: Patient returns see me for his right knee. He's been dealing with right knee pain now for some time. Is not improved despite conservative care. He continues to complain of medial sided knee pain that actually is worsening. ROS Musculoskeletal: See history of present illness. Neurological: Denies numbness and tingling in upper or lower extremities Social History Tobacco Use - Smoking status: Never Smoker - Smokeless tobacco: Never Used Substance Use Topics - Alcohol use: Not Currently - Drug use: Never Current Outpatient Medications: aspirin(ECOTRIN LOW STRENGTH 81 MG TAB) Take one(1) tablet daily. CELEBREX 200MG CAPSULE Take one(1) capsule daily. ULTRACET TABLET Take one(1) capsule daily AUGMENTIN 875-125 TABLET po bid No current facility-administere d medications for this visit. Clinical examination: 53-year-old male no acute distress. Alert and oriented times 3. 5 foot 7 inches tall 334 pounds. BMI of 52. Knee shows positive medial joint line tenderness. Assessment of effusion is difficult secondary soft tissue envelope. Radiologic review: MRI ordered by me in to my interpretation is consistent with medial meniscal tear in 2 locations and loss of lateral patellar facet cartilage. Clinical impression: #1 medial meniscal tear right knee #2 chondromalacia patella. Patient is undergone successful left knee arthroscopy in the past and wishes to proceed with on the right however he has other issues going on in this time and would like to hold off until after November. Consents were signed for the surgery we did administer cortisone injection for temporizing pain relief. 8mg of dexamethasone and 40mg of depomedrol was injected under sterile conditions as noted in dictation. We discussed the risks, benefits, goals, expectations, outcomes, and complications including nerve injury and vascular injury as well as the possibility of failure of the surgical procedure to remedy the complaint. All the patient's questions were answered to their satisfaction. Consents were then signed. The risk, benefits and alternatives of injection and no injection therapy were discussed. The patient consented for an injection. The patient has been identified by name and birthdate. The injection site was identified, marked and prepped with a betadine swab. . The site noted above was/were injected with a 25 gauge needle with medications noted above. The injection site was then dressed with a bandaid. The patient tolerated the injection well. The patient was instructed to monitor their blood sugars if appropriate and if diabetic and call if any concerns. The patient was instructed to call the office if any adverse local effects occurred or any if any questions or concerns arise. At the conclusion of the office visit, the patient was asked if they had any questions regarding the diagnosis or care. Also, ample time was provided for the patient to ask any questions regarding the diagnosis therefore plan of care. All the patient's questions if asked were answered to their satisfaction. This note was partially generated using [employer] voice recognition system and as such may contain grammatical or word errors Normal [facility] 09-24-2018 ALLIED [facility] HNO ID: [id number] Author: Chanel Garcia (Tech) Service: Radiology Author Type: Manager Garage Type: Allied Health Filed: 09/24/2018 6:53 PM Note Text: Radiology Service Progress Note PATIENT NAME: Alexia Carpentre DATE OF SERVICE: September 24, 2018 TIME: 6:52 PM PATIENT IDENTITY VERIFICATION COMPLETED USING TWO (2) METHODS: Patient confirmed name verbally and ID band matches.. PATIENT GENDER DATA: Male PATIENT RELEVANT IMPLANT DATA REVIEWED: Yes RADIOLOGY DEPARTMENT: MR; Exam(s) Completed: Lower MSK: Knee, right PERIPHERAL IV DATA: Not applicable SIGNED BY: HERBER Garcia September 24, 2018 6:52 PM [facility] MRI KNEE WO IVCON RTon 09-24 MRI KNEE WO IVCON RT * * *Final Report* * * DATE OF EXAM: Sep 24 2018 7:46PM [facility] 0213 - MRI KNEE WO IVCON RT / PROCEDURE REASON: M23.203-Old tear of medial meniscus of right knee, unspecified tear type * * * * Physician Interpretation * * * * HISTORY: Old tear of medial meniscus of right knee, unspecified tear type TECHNIQUE: Routine MRI of the right knee. COMPARISON: None RESULT: MENISCI: Small radial type tear of the posterior horn of the medial meniscus extending to the upper surface of the meniscus. Thick horizontal tear of the posterior horn of the medial meniscus as well, extending into the body. Lateral meniscus is intact. LIGAMENTS: Partial PCL tear versus mucoid degeneration. ACL and collateral ligaments are intact. CARTILAGE: High-grade, near full-thickness articular cartilage loss in the medial patellar facet. Remaining articular cartilage throughout the knee is relatively well preserved. TENDONS: The visualized extensor mechanism, biceps femoris tendon, popliteus tendon and the other tendons around the knee are all intact appearing. BONE MARROW: No evidence of fracture or bone marrow replacing lesion. MUSCLE: Muscle bulk and signal intensity are normal. JOINT FLUID AND SYNOVIUM: Small joint effusion OTHER: Significant subcutaneous edema/fluid. No focal soft tissue fluid collection. IMPRESSION: MEDIAL MENISCAL TEARS SUBCUTANEOUS EDEMA ARTICULAR CARTILAGE LOSS MEDIAL PATELLAR FACET. 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 Officer[facility] Transcribe Date/Time: Sep 25 2018 8:46A Dictated by : JUSTIN MARKS MD This examination was interpreted and the report reviewed and electronically signed by: JUSTIN MARKS MD on Sep 25 2018 8:57AM EST [id number] Office Visit (ORMDNA) ALEXIA CARPENTER ([id number]) 1965 M Date Time Provider Department 09/03/18 3:45 PM SHERIF RUBY During your visit today, we recorded the following information about you: Sherif Ruby MD [facility] 09/03/2018 4:08 PM Signed Previous patient comes in to see me today for right knee pain. Is undergone left knee arthroscopy and is developing left knee primary osteoarthritis. Here today because of new complaint of 9 months of right knee pain. It's constant and has not improved. He has tried vsmf-kii-xuzehrw anti-inflammatories the appropriate dosing with no improvement. He has not performed any physical therapy. Complaining of medial sided pain and clicking. ROS Musculoskeletal: See history of present illness. Neurological: Denies numbness and tingling in upper or lower extremities Social History Tobacco Use - Smoking status: Never Smoker - Smokeless tobacco: Never Used Substance Use Topics - Alcohol use: Not Currently - Drug use: Never Current Outpatient Medications: aspirin(ECOTRIN LOW STRENGTH 81 MG TAB) Take one(1) tablet daily. CELEBREX 200MG CAPSULE Take one(1) capsule daily. (Patient not taking: Reported on 09/03/2018) ULTRACET TABLET Take one(1) capsule daily (Patient not taking: Reported on 09/03/2018) AUGMENTIN 875-125 TABLET po bid (Patient not taking: Reported on 09/03/2018) No current facility-administere d medications for this visit. Clinical examination: 52-year-old male no acute distress. Alert and oriented times 3. 5 foot 7 inches tall 340 pounds. BMI of 53. Examination the right knee demonstrates medial joint line tenderness with tenderness with valgus stress. There is no laxity noted. Effusion is difficult to assess because the soft tissue envelope. There is positive catching when going from flexion of extension and a positive Danilo sign Radiologic review: X-rays ordered by me in to my interpretation are consistent with a normal-appearing medial space. Is no evidence for degenerative changes in the right knee. Clinical impression: #1 medial meniscal tear right knee #2 right knee locking. Recommendation is an MRI. 9 months with no improvement. At the conclusion of the office visit, the patient was asked if they had any questions regarding the diagnosis or care. Also, ample time was provided for the patient to ask any questions regarding the diagnosis therefore plan of care. All the patient's questions if asked were answered to their satisfaction. This note was partially generated using [employer] voice recognition system and as such may contain grammatical or word errors Referring Provider: SHERIF RUBY [[id number]] Allergies As of Date: 09/03/2018 (No Known Allergies) Date Reviewed: 09/03/2018 Reviewed by: Sherif Ruby - Fully Assessed Reason for Visit: New Patient [172] Primary Visit Diagnosis:Locking of right knee [M23.91] Other Visit Diagnosis:Old tear of medial meniscus of right knee, unspecified tear type [M23.203] Order(s):MRI KNEE WO IVCON RT [[id number]] Order #: [id number] FUTURE Prescriptions as of 09/03/2018 Sig: * ECOTRIN LOW STRENGTH 81 MG TA* Take one(1) tablet daily. * CELEBREX 200 MG CAPSULE Take one(1) capsule daily. Patient not taking: Reported on 09/03/2018 * ULTRACET 37.5 MG-325 MG TABLET Take one(1) capsule daily Patient not taking: Reported on 09/03/2018 * AUGMENTIN 875 MG-125 MG TABLET po bid Patient not taking: Reported on 09/03/2018 Problem List As Of Date 09/03/2018 Noted Resolved Left Knee Pain [M25.562] INVALID FOR* Encounter Status:Closed by SHERIF RUBY MD, FACS on 09/03/18 [facility] 09[facility]03[facility]2018 PROGRESS HNO ID: [id number] Author: Sherif Ruby Service: ? Author Type: Physician Type: Progress Notes Filed: 09/03/2018 4:08 PM Note Text: Previous patient comes in to see me today for right knee pain. Is undergone left knee arthroscopy and is developing left knee primary osteoarthritis. Here today because of new complaint of 9 months of right knee pain. It's constant and has not improved. He has tried xuwb-kxh-wkpnwaz anti-inflammatories the appropriate dosing with no improvement. He has not performed any physical therapy. Complaining of medial sided pain and clicking. ROS Musculoskeletal: See history of present illness. Neurological: Denies numbness and tingling in upper or lower extremities Social History Tobacco Use - Smoking status: Never Smoker - Smokeless tobacco: Never Used Substance Use Topics - Alcohol use: Not Currently - Drug use: Never Current Outpatient Medications: aspirin(ECOTRIN LOW STRENGTH 81 MG TAB) Take one(1) tablet daily. CELEBREX 200MG CAPSULE Take one(1) capsule daily. (Patient not taking: Reported on 09/03/2018) ULTRACET TABLET Take one(1) capsule daily (Patient not taking: Reported on 09/03/2018) AUGMENTIN 875-125 TABLET po bid (Patient not taking: Reported on 09/03/2018) No current facility-administere d medications for this visit. Clinical examination: 52-year-old male no acute distress. Alert and oriented times 3. 5 foot 7 inches tall 340 pounds. BMI of 53. Examination the right knee demonstrates medial joint line tenderness with tenderness with valgus stress. There is no laxity noted. Effusion is difficult to assess because the soft tissue envelope. There is positive catching when going from flexion of extension and a positive Danilo sign Radiologic review: X-rays ordered by me in to my interpretation are consistent with a normal-appearing medial space. Is no evidence for degenerative changes in the right knee. Clinical impression: #1 medial meniscal tear right knee #2 right knee locking. Recommendation is an MRI. 9 months with no improvement. At the conclusion of the office visit, the patient was asked if they had any questions regarding the diagnosis or care. Also, ample time was provided for the patient to ask any questions regarding the diagnosis therefore plan of care. All the patient's questions if asked were answered to their satisfaction. This note was partially generated using [employer] recognition system and as such may contain grammatical or word errors Normal [facility] PROGRESS HNO ID: [id number] Author: BAY Martinez (Ct) Service: ? Author Type: Clinical Manager Garage Type: Progress Notes Filed: 09/03/2018 3:33 PM Note Text: NAME:Alexia Carpenter DATE: September 03, 2018 [facility]#: [id number] Lower Extremity X-Ray(s): Knee, AP / Lat / Tunne / Merchant Right and Wt. Bearing COMPLETED TECH ID SIGN: JOVANNY MONTEMAYOR [facility] XR KNEE 4V AP/PA BOTH+LAT/ME R RTon 09-03-2018 XR KNEE 4V AP/PA BOTH+LAT/EVIE RT * * *Final Report* * * DATE OF EXAM: Sep 03 2018 3:32PM [facility] 5203 - XR KNEE 4V AP/PA BOTH+LAT/EVIE RT / PROCEDURE REASON: [id number] * * * * Physician Interpretation * * * * EXAMINATION: XR KNEE 4V AP/PA BOTH+LAT/EVIE RT CLINICAL HISTORY: RIGHT KNEE PAIN Pain Technique: XR KNEE 4V AP/PA BOTH+LAT/EVIE RT -- RIGHT knee with 4 views on 4 images Comparison: None RESULT: No acute fracture or dislocation. There is mild narrowing of the medial compartment of the right knee. No significant degenerative spurring. No right knee joint effusion. IMPRESSION: Mild narrowing of the right knee joint space. No acute osseous abnormality or joint effusion. 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 Officer: JUSTYN Transcribe Date/Time: Sep 04 2018 8:21A Dictated by : MAE JOHNSON MD This examination was interpreted and the report reviewed and electronically signed by: MAE JOHNSON MD on Sep 04 2018 8:22AM EST [id number] Normal [facility] Encounters Encounter Date Encounter Type Care Provider Facility Start: 09-03-2022 End: 09-04-2022 ambulatory OSVALDO HARLEY RECOVERER-PROGRAM MANAGEMENT SPECIALIST Facility:[facility] Start: 09-03-2022 End: 09-03-2022 Patient encounter procedure [facility] Start: 07-17-2022 End: 07-17-2022 Emergency department patient visit OSVALDO HARLEY Facility:[facility] Payers Date Payer Category Payer Unknown [id number] 2018 Unknown [id number] 1965 Unknown [id number] Social History Date Type Detail Facility Tobacco smoking status No Smoking Status Entered [facility] Sex Assigned At Male [facility] Evaluation + Plan note Note Date & Type Note Facility Evaluation + Plan note No data available for this section [facility] Hospital Discharge instructions Note Date & Type Note Facility Hospital Discharge instructions No data available for this section [facility] Progress note Note Date & Type Note Facility Progress note No data available for this section [facility] Summary Purpose Family History No Family History Records FoundNo Family History Records FoundNo Family History Records FoundNo Family History Records Found Advance Directives No Advanced Directives Records FoundNo Advanced Directives Records FoundNo Advanced Directives Records FoundNo Advanced Directives Records Found Additional Source Comments (unrecognized sect ion and content) No Status Records FoundNo Status Records FoundNo Status Records FoundNo Status Records Found INFORMATION SOURCE (unrecogn ized section and content) DATE CREATED AUTHOR 11/02/2018 [facility] DATE CREATED AUTHOR AUTHOR'S ORGANIZ ATION 12/05/2018 [facility] DATE CREATED AUTHOR AUTHOR'S ORGANIZ ATION 07/19/2022 [facility] DATE CREATED AUTHOR AUTHOR'S ORGANIZ ATION 09/05/2022 [facility] ([place]) Patient Care team informatio n (unrecognized section and content) Care Team Personnel Name: OSVALDO HARLEY YOCASTA-PROGRAM MANAGEMENT SPECIALIST Member Role: Primary Care Physician Address: Address: [address] [id number] FOR RECORDS PERTAINING TO PATIENTS WHO ARE OR HAVE BEEN ENROLLED IN A CHEMICAL DEPENDENCY/SUBSTANCEABUSE PROGRAM, SOME INFORMATION MAY BE OMITTED. This clinical summary was aggregated from multiple sources. Caution should be exercised in using it in the provision of clinical care. This summary normalizes information from multiple sources, and as a consequence, information in this document may materially change the coding, format and clinical context of patient data. In addition, data may be omitted in some cases. CLINICAL DECISIONS SHOULD BE BASED ON THE PRIMARY CLINICAL RECORDS. [facility]. provides no warranty or guarantee of the accuracy or completeness of information in this document.
[2024-01-01 22:57] LABS: ALB/GLOB Ratio 1.1 RATIO (0.9-2.4); AST(SGOT) 22 U/L (15-37); Alanine Aminotransfer ALT/SGPT 34 U/L (16-61); Albumin, Serum 3.3 g/dL (3.2-5.0); Alkaline Phosphatase 64 U/L (45-117); Anion Gap 7 (5-15); BUN 17 mg/dL (7-18); BUN/Creat Ratio 35.1 RATIO (10-20); Calcium,Total 8.5 mg/dL (8.5-10.1); Chloride 106 mmol/L (98-107); Cholesterol 158 mg/dL (200); Creatinine, Serum 0.48 mg/dL (0.70-1.30); EST Glomerular Filtration Rate 188 mL/min (>60); Est Glom Filt Rate - Afr Amer 227 mL/min (>60); Globulin 2.9 g/dL (2.2-4.2); Glucose 91 mg/dL (74-106); High Density Lipoprotein 56 mg/dL; Protein, Total 6.2 g/dL (6.4-8.2); Sodium Level 143 mmol/L (136-145); Triglycerides 119 mg/dL; Very Low Density Lipoprotein 24 mg/dL (5-40)
== END | disposition home or self-care (01) ==
PROVIDERS: PCP Nurse Practitioner; Referring Provider Nurse Practitioner; Visit Provider Nurse Practitioner
DX: I10 Essential (primary) hypertension (principal); E03.9 Hypothyroidism, unspecified; D50.8 Other iron deficiency anemias; K90.0 Celiac disease
CPT/HCPCS: 80053; 80061; 84443; 85025

== ENCOUNTER → 2024-05-14 | Outpatient (CLI) | payer BC, OTHER, SELFPAY ==
[2024-05-14 22:38] LABS: Absolute Lymphocyte Count 1.47 X10^3/uL (0.83-4.51); Absolute Neutrophil Count 4.9 X10^3/uL (2.0-7.7); Basophil# 0.04 X10^3/uL; Basophil% 0.5 % (0-1); Eosinophil# 0.21 X10^3/uL; Eosinophils% 2.9 % (0-5); Hematocrit 41.8 % (40-54); Hemoglobin 13.3 g/dL (13.0-16.5); Lymphocyte # 1.47 X10^3/ul (0.83-4.51); Lymphocyte % 20.1 % (19-41); Mean Corp Hgb Conc 31.8 g/dL (32-36); Mean Corpuscular Volume 75.5 fL (80-94); Mean Platelet Vol. 10.1 fl (6.2-12.0); Monocyte% 9.6 % (0-10); NRBC Flagged by Analyzer 0 % (0-5); Neutrophil # 4.86 X10^3/uL (2.7-7.7); Neutrophil % 66.4 % (47-70); Platelet Count 225 K/mm3 (150-450); RBC Distribution Width CV 15.7 % (11.6-14.6); RBC Distribution Width SD 42.4 fl (35.1-43.9); Red Blood Count 5.54 M/mm3 (4.6-6.2); White Blood Count 7.3 K/mm3 (4.4-11.0)
[2024-05-14 23:13] LABS: Hemoglobin A1c 6.2 % (<=5.6)
[2024-05-14 23:16] LABS: ALB/GLOB Ratio 1.8 RATIO (0.9-2.4); AST(SGOT) 26 U/L (<=37); Alanine Aminotransfer ALT/SGPT 27 U/L (<=46); Alkaline Phosphatase 69 U/L (40-129); Anion Gap 12 (5-15); BUN 17 mg/dL (4-19); BUN/Creat Ratio 31.6 RATIO (10-20); Calcium,Total 9.1 mg/dL (7.6-11.0); Carbon Dioxide 23.7 mmol/L (21.0-32.0); Chloride 104 mmol/L (98-108); Cholesterol 143 mg/dL (<=200); Creatinine, Serum 0.54 mg/dL (0.70-1.20); EST Glomerular Filtration Rate 116 (>60); Globulin 2.2 g/dL (2.2-4.2); Glucose 97 mg/dL (70-99); High Density Lipoprotein 53 mg/dL; Low Density Lipoprotein Calc. 60 mg/dL; PSA,Total - Annual Screen 0.55 ng/mL (0.02-4.00); Potassium 3.3 mmol/L (3.3-5.1); Protein, Total 6.2 g/dL (5.9-8.4); Sodium Level 140 mmol/L (133-145); Total Bilirubin 0.27 mg/dL (0.00-1.30); Triglycerides 151 mg/dL; Very Low Density Lipoprotein 30 mg/dL (5-40); cholesterol:hdl ratio screen 2.72
== END | disposition home or self-care (01) ==
PROVIDERS: PCP Nurse Practitioner; Referring Provider Nurse Practitioner; Visit Provider Nurse Practitioner
DX: Z00.00 Encounter for general adult medical examination without abnormal findings (principal)
CPT/HCPCS: 80053; 80061; 83036; 84153; 85025; G0103